=== PATIENT | female | born 1975 | race Caucasian/White ===

== ENCOUNTER 2019-04-28 10:05 | Emergency (ER) | payer OTHER, SELFPAY ==
--- NOTE | ~2019-04-28 | XR_ITS ---
EXAMINATION: XR chest 2V DATE: 04/28/2019 11:19 INDICATION: Shortness of breath and cough TECHNIQUE: Frontal and lateral views of the chest are obtained COMPARISON: 05/25/2017 FINDINGS: There are surgical changes at the left hilum with chronic volume loss in the left hemithora x, consistent with partial pneumonectomy. There is chronic elevation of the left hemidiaphragm. No ac ambler airspace opacities are identified. There is no pleural effusion or pneumothorax. The heart size i s normal. The visualized bones and soft tissues are unremarkable. IMPRESSION: 1. No acute cardiopulmonary abnormality. Reviewed, dictated and finalized at location A. RACT DESIGN AGENT
[2019-04-28 10:25] VITALS: BP 143/93; PULSE 110; RESP 20; TEMP 37.3; O2SAT 100
--- NOTE | 2019-04-28 10:30 | ECG_ITS ---
Measurements Intervals [place] Rate: 85 P: 89 WV: 150 QRS: 109 QRSD: 86 T: 82 QT: 363 QTc: 432 Interpretive Statements SINUS RHYTHM RIGHT AXIS DEVIATION RSR' IN V1 OR V2, CONSIDER RIGHT VENTRICULAR HYPERTROPHY OR RIGHT VCD BORDERLINE R WAVE PROGRESSION, ANTERIOR LEADS BORDERLINE T WAVE ABNORMALITY- ANTERIOR LEADS BASELINE ARTIFACT- V6 BORDERLINE ECG Electronically Signed On 04-28-2019 16:07:55 LINOLEUM PRINTER by Alex Foster D.O.
--- NOTE | 2019-04-28 10:38 | ED.SOB ---
HPI - SOB/Dyspnea General Chief Complaint: Shortness of Breath/Dyspnea Stated Complaint: congested sick Time Seen by Provider: 04/28/19 10:38 Source: patient Mode of arrival: ambulatory Limitations: no limitations History of Present Illness HPI Narrative: 44-year-old woman with a history of right pneumonectomy, and COPD comes to the emergency department today complaining of 5 days of fever, shortness of breath, chest heaviness, and productive cough. She states she had 1 episode of vomiting a few days ago but has had none since. She has been doing her home treatments including nebulizers to no avail. She states she had a flu vaccine last May. She denies any sick exposures or significant travel. MD elicited complaint: shortness of breath and cough Pertinent past history: COPD and asthma Onset (ago): day(s) (5) Context: recent illness Exacerbating factors: exertion Relieving factors: nothing Known history of: COPD and asthma Associated symptoms: chest pain, fever, cough, wheezing, sputum production and nausea/vomiting Related Data Home oxygen amount: 2 liters Home Medications Medication Instructions Recorded Confirmed albuterol sulfate 0.63 mg INHALATION Q4H PRN 04/28/19 04/28/19 albuterol sulfate [ProAir HFA] 2 puff INHALATION QID PRN 04/28/19 04/28/19 budesonide-formoterol [Symbicort] 2 puff INHALATION Q12H 04/28/19 04/28/19 tiotropium bromide [Spiriva with 1 cap INHALATION BID 04/28/19 04/28/19 HandiHaler] Allergies Allergy/AdvReac Type Severity Reaction Status Date / Time aspirin Allergy Unknown Verified 04/28/19 10:33 benzonatate Allergy Unknown Verified 04/28/19 10:33 [From Dannie Diaz] Penicillins Allergy Unknown Verified 04/28/19 10:33 Sulfa (Sulfonamide Allergy Unknown Verified 04/28/19 10:33 Antibiotics) Review of Systems Constitutional: Constitutional: Reports chills, Denies fatigue, Reports fever(s) and Denies weakness Eyes: Eyes: Denies change in vision and Denies photophobia ENT: Denies dysphagia, Reports nasal congestion and Denies sore throat Cardiovascular: Cardiovascular: Reports chest pain and Denies radiating jaw, neck or arm pain Respiratory: Respiratory: Reports as per HPI, Reports chest congestion, Reports cough, Reports dyspnea and Reports wheezing Gastrointestinal: Gastrointestinal: Denies abdominal pain, Denies diarrhea, Denies nausea and Reports vomiting Genitourinary: Genitourinary: Denies nocturia and Denies dysuria Musculoskeletal: Musculoskeletal: Denies back pain, Denies arthralgias and Denies joint swelling Integumentary/Breasts: Skin/Breast: Denies pruritus, Denies erythema and Denies rash Neurologic: Denies vertigo, Denies dizziness and Denies syncope Psychiatric: Psychiatric: Denies anxiety and Denies depression Endocrine: Endocrine: Denies excessive sweating and Denies polydipsia Hematologic/Lymphatic: Hematologic/Lymphatic: Denies easy bleeding and Denies easy bruising Allergic/Immunologic: Allergic/Immunologic: Denies lip swelling and Denies wheezing PMFSH Past Medical History Medical History Anxiety COPD (chronic obstructive pulmonary disease) Hypertension Surgical History Surgical History History of carpal tunnel surgery History of section S/P lobectomy of lung Ulnar nerve entrapment Social History Social History Smoking status: Former smoker Alcohol intake: former Substance use: never Living arrangements: with family Exam Const: General: alert Orientation/consciousness: patient oriented x3 Other: mild acute distress. HENMT: Head: normal to inspection Ears: external ears normal, TM's normal bilaterally and EAC's normal Mouth: Yes Normal oral and palatal mucosa present and Yes moist mucous membranes Throat: posterior oropharynx normal Eye
[2019-04-28] MEDS: IPRATROPIUM 0.5 MG/ALBUTEROL SULFATE 2.5 MG AMPUL.NEB 3 ML INHALATION (10:48)
[2019-04-28 10:49] VITALS: PULSE 86; RESP 20
[2019-04-28 10:54] VITALS: PULSE 80; RESP 20
[2019-04-28] MEDS: methylPREDNISolone SOD SUCC 125 MG VIAL IV PUSH (10:56)
[2019-04-28 11:10] LABS: Basophils Absolute Auto 0.06 K/mm3 (0.00-0.10); Basophils Percent Auto 0.6 % (0.0-1.0); Eosinophils Absolute Auto 0.17 K/mm3 (0.02-0.50); Eosinophils Percent Auto 1.8 % (1.0-6.0); Hematocrit 39.2 % (35.0-49.0); Immature Granulocyte Absolute 0.02 K/mm3 (0.00-0.00); Immature Granulocyte Percent A 0.2 % (0.0-0.0); Lymphocytes Absolute Auto 1.62 K/mm3 (1.10-4.50); Lymphocytes Percent Auto 16.9 % (18.0-42.0); Mean Corpuscular HGB Conc 33.2 g/dL (32.0-36.0); Mean Corpuscular Hemoglobin 31.1 pg (27.0-31.0); Mean Corpuscular Volume 93.8 fL (78.0-102.0); Mean Platelet Volume 8.9 fl (9.2-11.8); Monocytes Absolute Auto 0.86 K/mm3 (0.10-0.90); Monocytes Percent Auto 8.9 % (2.0-11.0); Neutrophils Absolute Auto 6.9 K/mm3 (1.7-7.2); Neutrophils Percent Auto 71.6 % (50.0-70.0); Platelet Count Result 355 K/mm3 (150-420); Red Blood Count 4.18 M/mm3 (4.20-5.40); Red Cell Distribution Width 13.9 % (11.6-14.4); White Blood Count 9.6 K/mm3 (4.8-10.8)
--- NOTE | 2019-04-28 11:10 | PC.NURSE ---
Report given to Velasquez Sarmiento
[2019-04-28 11:21] LABS: Add Urine Microscopic? NO; Appearance Urine Clear (Clear); Bilirubin Urine Negative (Negative); Blood Urine Negative (Negative); Color Urine Yellow (Yellow); Glucose Urine UA Negative (Negative); Ketones Urine Negative (Negative); Leukocyte Esterase Ur Negative LEU/UL (Negative); Nitrate Urine Negative (Negative); Protein Urine Negative (Negative); Specific Grav Ur 1.025 (1.010-1.020); Urobilinogen Urine 0.2 mg/dL (0.2-1.0); pH Urine 5.5 (5.0-8.0)
[2019-04-28 11:29] LABS: Alanine Aminotransferase 38 U/L (14-59); Albumin Level 3.9 g/dL (3.4-5.0); Alkaline Phosphatase 95 U/L (46-116); Anion Gap 14.4 mmol/L (7-16); Aspartate Amino Transferase 36 U/L (15-37); Bilirubin,Total 0.3 mg/dL (0.00-1.00); Blood Urea Nitrogen 6 mg/dL (7-18); Calcium 9.1 mg/dL (8.5-10.1); Carbon Dioxide 28 mmol/L (21-32); Chloride 102 mmol/L (98-108); Estimated CRCL calculation 60 ml/min; Estimated Glomerular Filt Rate > 60; Glucose 78 mg/dL (70-99); Osmolality Calculated 286 mOsm/kg (285-295); Potassium 4.4 mmol/L (3.5-5.1); Sodium 140 mmol/L (136-145); Total Protein 7.8 g/dL (6.4-8.2)
[2019-04-28 11:30] LABS: Troponin I < 0.02 ng/mL (0.00-0.056)
[2019-04-28 11:31] LABS: Influenza Control Valid (Valid)
[2019-04-28 11:48] LABS: Prothrombin Time 10.2 Seconds (9.64-11.0)
[2019-04-28 11:55] LABS: D Dimer 0.56 mg/L (0.19-0.50)
[2019-04-28 12:24] VITALS: BP 161/98; PULSE 67; RESP 23; O2SAT 100
== END 2019-04-28 12:25 | disposition home or self-care (01) ==
PROVIDERS: Emergency Provider Emergency Medicine
DX: J44.1 Chronic obstructive pulmonary disease with (acute) exacerbation (principal); Z87.891 Personal history of nicotine dependence
CPT/HCPCS: 36415; 71046; 80053; 81003; 84484; 85025; 85380; 85610; 85730; 87040; 87804; 93005; 94640; 96374; 99284; J2930

== ENCOUNTER 2021-11-27 14:59 | Emergency (ER) | payer OTHER, SELFPAY ==
[2021-11-27 15:21] VITALS: BP 200/133; PULSE 114; RESP 20; TEMP 36.7; O2SAT 98
[2021-11-27 16:05] VITALS: BP 189/120; PULSE 96; RESP 18; O2SAT 97
--- NOTE | 2021-11-27 16:05 | ED.DENTAL ---
HPI - Dental/Oral General Chief complaint: Dental/Oral Stated complaint: RIGHT JAW/TOOTH PAIN Time Seen by Provider: 11/27/21 15:03 Source: patient and RN notes reviewed Mode of arrival: ambulatory Limitations: no limitations History of Present Illness MD Complaint: tooth pain Onset (ago): day(s) (2) Duration: constant Severity: moderate Severity scale (1-10): 7 Relieving factors: nothing Exacerbating factors: chewing Context: history of dental caries and poor dental care Related Data Home Medications Medication Instructions Recorded Confirmed albuterol sulfate 0.63 mg/3 mL 0.63 mg inhalation Q4H PRN 04/28/19 11/27/21 solution for nebulization Shortness Of Breath albuterol sulfate 90 mcg/actuation 2 puff inhalation QID PRN 04/28/19 11/27/21 aerosol inhaler (ProAir HFA) Shortness Of Breath budesonide-formoterol HFA 160 2 puff inhalation Q12H 04/28/19 11/27/21 mcg-4.5 mcg/actuation aerosol inhaler (Symbicort) Allergies Allergy/AdvReac Type Severity Reaction Status Date / Time aspirin Allergy Unknown Verified 11/27/21 15:23 benzonatate Allergy Unknown Verified 11/27/21 15:23 [From Teswhitney Diaz] Penicillins Allergy Unknown Verified 11/27/21 15:23 Sulfa (Sulfonamide Allergy Unknown Verified 11/27/21 15:23 Antibiotics) Review of Systems Review of Systems: All systems reviewed & are unremarkable except as noted in HPI and below Constitutional: Constitutional: Reports no additional constitutional complaints Eyes: Eyes: Reports no additional eye complaints ENT: Reports system reviewed and no additional complaints, except as documented Comments: toothache. Cardiovascular: Cardiovascular: Reports no additional cardiovascular complaints Respiratory: Respiratory: Reports no additional respiratory complaints Gastrointestinal: Gastrointestinal: Reports no additional gastrointestinal complaints Genitourinary: Genitourinary: Reports no additional female genitourinary complaints Musculoskeletal: Musculoskeletal: Reports no additional musculoskeletal complaints Integumentary/Breasts: Skin/Breast: Reports system reviewed and no additional complaints, except as docu Neurologic: Reports system reviewed and no additional complaints, except as documented Psychiatric: Psychiatric: Reports no additional psychiatric complaints Endocrine: Endocrine: Reports no additional endocrine complaints Hematologic/Lymphatic: Hematologic/Lymphatic: Reports no additional hematologic/lymphatic complaints Allergic/Immunologic: Allergic/Immunologic: Reports no additional allergic/immunologic complaints PMFSH Past Medical History Medical History Anxiety COPD (chronic obstructive pulmonary disease) Hypertension Toothache Surgical History Surgical History History of carpal tunnel surgery History of section S/P lobectomy of lung Ulnar nerve entrapment Social History Social History Smoking status: Former smoker Alcohol intake: former Substance use: never Exam Const: General: healthy appearing and no acute distress Nutritional Appearance: well nourished Orientation/consciousness: patient oriented x3 Limitations: no limitations HENMT: Head: normal to inspection Ears: external ears normal, TM's normal bilaterally and EAC's normal General nose exam: Normal external nose present and Normal nares present Face and sinus: normal facial exam and sinuses nontender Mouth: Yes Normal oral and palatal mucosa present and Yes moist mucous membranes Teeth and gingiva: abnormal tooth and associated gingiva (multiple carious teeth) Throat: posterior oropharynx normal Eyes: Conjunctivae: conjunctivae normal Pupils: Equal, round and reactive pupils present EOM: EOMs intact bilaterally Neck: Neck: normal visual inspection, no lymphaden
[2021-11-27] MEDS: cloNIDine HCL 0.2 MG TABLET PO ×2 (16:15→17:07)
[2021-11-27] MEDS: cefTRIAXone 1 GM, LIDOCAINE HCL 1% LOCAL INJ 2.1 ML IM (16:15)
[2021-11-27] MEDS: IBUPROFEN 600 MG TABLET PO (16:16)
--- NOTE | 2021-11-27 17:35 | PC.NURSE ---
On 11/27/21, the student, [SUSAN CALLE ], provided care and completed [facility] documentation on this patient. I have reviewed the student's documentation and agree with the findings.
[2021-11-27 17:38] VITALS: BP 167/99; BP 200/133; PULSE 72; PULSE 99; RESP 20; TEMP 36.6; O2SAT 97
== END 2021-11-27 17:46 | disposition home or self-care (01) ==
PROVIDERS: Emergency Provider Emergency Medicine; PCP Nurse Practitioner
DX: K04.7 Periapical abscess without sinus (principal); I10 Essential (primary) hypertension
CPT/HCPCS: 96372; 99283; A9270; J0696

== ENCOUNTER 2022-08-20 12:10 | Emergency (ER) | payer OTHER, SELFPAY ==
[2022-08-20 12:10] VITALS: BP 150/104; PULSE 113; RESP 20; TEMP 37.1; O2SAT 94
--- NOTE | 2022-08-20 12:15 | ED.UPPEXIN ---
HPI - Extremity Injury (Upper) General Chief Complaint: Extremity Injury, Upper Stated Complaint: right wrist pain Time Seen by Provider: 08/20/22 12:15 Source: patient and RN notes reviewed Mode of arrival: ambulatory Limitations: no limitations History of Present Illness HPI narrative: patient states that she was at work about 3 and half weeks ago when she was cleaning off a counter when she felt a sudden tear and ripping sensation in her right wrist. She says that she has been Dorita bring her right wrist trying not to move it much but it continues to be painful and burned. Range of motion hurts trying to pick things up with her right hand causes pain. She says there is a fullness and swelling on the volar aspect of her right wrist. She says that she has had 2 surgeries on that wrist in the past 1 of them being carpal tunnel surgery. complaint: injury to: right and wrist Onset (ago): week(s) (3.5) Other injuries: none Handedness: right Place: work Severity: moderate Relieving factors: rest Exacerbating factors: movement of extremity Context: other Associated symptoms: denies other symptoms Related Data Home Medications Medication Instructions Recorded Confirmed albuterol sulfate 0.63 mg/3 mL 0.63 mg inhalation Q4H PRN 04/28/19 08/20/22 solution for nebulization Shortness Of Breath albuterol sulfate 90 mcg/actuation 2 puff inhalation QID PRN 04/28/19 08/20/22 aerosol inhaler (ProAir HFA) Shortness Of Breath budesonide-formoterol HFA 160 2 puff inhalation Q12H 04/28/19 08/20/22 mcg-4.5 mcg/actuation aerosol inhaler (Symbicort) Allergies Allergy/AdvReac Type Severity Reaction Status Date / Time aspirin Allergy Unknown Verified 08/20/22 12:15 benzonatate Allergy Unknown Verified 08/20/22 12:15 [From Dannie Diaz] Penicillins Allergy Unknown Verified 08/20/22 12:15 Sulfa (Sulfonamide Allergy Unknown Verified 08/20/22 12:15 Antibiotics) [facility] Past Medical History Medical History Anxiety COPD (chronic obstructive pulmonary disease) Hypertension Toothache Surgical History Surgical History History of carpal tunnel surgery History of section S/P lobectomy of lung Ulnar nerve entrapment Social History Social History Smoking status: Former smoker Alcohol intake: former Substance use: never Living arrangements: with family Exam Const: General: healthy appearing, no acute distress and alert Nutritional Appearance: well nourished and thin Orientation/consciousness: patient oriented x3 Limitations: no limitations Other: female nurse in room during examination. HENMT: Head: normal to inspection Ears: external ears normal Face/Nose/Sinus: Normal external nose present Face and sinus: normal facial exam Mouth: Yes moist mucous membranes Eyes: Conjunctivae: conjunctivae normal Pupils: Equal, round and reactive pupils present EOM: EOMs intact bilaterally Neck: Neck: normal visual inspection Chest: Chest palpation & inspection: normal inspection of the chest Resp: Effort & Inspection: normal respiratory effort Auscultation: clear to auscultation bilaterally Cardio: Rate: regular rate Rhythm: regular rhythm GI: GI Palp: Yes Soft to palpation and Yes Tenderness to palpation present (GI) Auscultation: normal bowel sounds Back/Spine/Pelvis: Cervical Spine: cervical ROM normal Thoracic/Lumbar Spine: thoraco-lumbar ROM normal Skin: General skin exam: normal color Rashes: no rashes Neuro: General: patient oriented x3, moves all extremities, no focal motor deficits and CN's II-XI intact bilaterally Speech: normal speech Gait exam (Neuro): Normal gait present Extrem: General: normal exam except as noted and no clubbing, cyanosis or edema Right upper extremity: wrist ( weakness of the flexor tendon of
== END 2022-08-20 12:35 | disposition home or self-care (01) ==
PROVIDERS: Emergency Provider Emergency Medicine
DX: S66.911A Strain of unspecified muscle, fascia and tendon at wrist and hand level, right hand, initial encounter (principal); X50.0XXA Overexertion from strenuous movement or load, initial encounter; M77.8 Other enthesopathies, not elsewhere classified; J44.9 Chronic obstructive pulmonary disease, unspecified; I10 Essential (primary) hypertension; F41.9 Anxiety disorder, unspecified; Z90.2 Acquired absence of lung [part of]; Z87.891 Personal history of nicotine dependence; Z79.51 Long term (current) use of inhaled steroids
CPT/HCPCS: 29125; 99283

== ENCOUNTER 2023-01-29 11:11 | Emergency (ER) | payer OTHER, SELFPAY ==
--- NOTE | ~2023-01-29 | XR_ITS ---
EXAMINATION: XR wrist RT min 3V DATE: 01/29/2023 12:57 INDICATION: Right wrist swelling. TECHNIQUE: 4 views of right wrist were obtained. COMPARISON: Right hand radiographs 09/06/2016 FINDINGS: There are changes of resection of trapezium. There is old healed fracture of diaphysis of f ifth metacarpal. Osteopenia is noted. Joint spaces are normal. IMPRESSION: 1. No etiology for the patient's symptoms. Reviewed, dictated and finalized at location E.
[2023-01-29 11:12] VITALS: BP 196/125; PULSE 128; RESP 20; TEMP 37.1; O2SAT 96
--- NOTE | 2023-01-29 11:24 | ED.EXTPRO ---
HPI - Extremity Problem General Chief complaint: Extremity Problem,Nontraumatic Stated complaint: right wrist injury Time Seen by Provider: 01/29/23 11:23 Source: patient Mode of arrival: ambulatory Limitations: no limitations History of Present Illness HPI Narrative: 47-year-old female with a history of COPD on home oxygen, status post left lobectomy when she was 7 years for pneumonia presents to the ER with -- right wrist pain. 1 cm cyst on the medial wrist which is tender. No trauma. -- Patient was noted to be hypertensive with a blood pressure of 196/125 and a heart rate of 128. The patient denies any chest pain. Chronic shortness of breath. patient states that she has white coat hypertension. MD Complaint: extremity pain Onset (ago): day(s) ( Started 1 day ago.) Location: right Severity scale (1-10): 5 Quality: aching Radiation: none Relieving factors: immobilization Exacerbating factors: range of motion Associated symptoms: shortness of breath Related Data Home Medications Medication Instructions Recorded Confirmed albuterol sulfate 0.63 mg/3 mL 0.63 mg inhalation Q4H PRN 04/28/19 08/20/22 solution for nebulization Shortness Of Breath albuterol sulfate 90 mcg/actuation 2 puff inhalation QID PRN 04/28/19 08/20/22 aerosol inhaler (ProAir HFA) Shortness Of Breath budesonide-formoterol HFA 160 2 puff inhalation Q12H 04/28/19 08/20/22 mcg-4.5 mcg/actuation aerosol inhaler (Symbicort) Allergies Allergy/AdvReac Type Severity Reaction Status Date / Time aspirin Allergy Unknown Verified 08/20/22 12:15 benzonatate Allergy Unknown Verified 08/20/22 12:15 [From Dannie Diaz] Penicillins Allergy Unknown Verified 08/20/22 12:15 Sulfa (Sulfonamide Allergy Unknown Verified 08/20/22 12:15 Antibiotics) Review of Systems Review of Systems: All systems reviewed & are unremarkable except as noted in HPI and below Constitutional: Constitutional: Reports as per HPI and Reports no additional constitutional complaints Eyes: Eyes: Reports as per HPI and Reports no additional eye complaints ENT: Reports system reviewed and no additional complaints, except as documented and Reports as per HPI Cardiovascular: Cardiovascular: Reports as per HPI and Reports no additional cardiovascular complaints Respiratory: Respiratory: Reports as per HPI, Reports no additional respiratory complaints, Reports cough and Reports dyspnea Gastrointestinal: Gastrointestinal: Reports as per HPI and Reports no additional gastrointestinal complaints Genitourinary: Genitourinary: Reports no additional female genitourinary complaints Musculoskeletal: Musculoskeletal: Reports no additional musculoskeletal complaints and Reports as per HPI Comments: Right wrist pain 1 cm erythematous tender cyst on the medial wrist Integumentary/Breasts: Skin/Breast: Reports system reviewed and no additional complaints, except as docu and Reports as per HPI Neurologic: Reports system reviewed and no additional complaints, except as documented and Reports as per HPI Psychiatric: Psychiatric: Reports no additional psychiatric complaints, Reports as per HPI and Reports anxiety Endocrine: Endocrine: Reports no additional endocrine complaints and Reports as per HPI Hematologic/Lymphatic: Hematologic/Lymphatic: Reports no additional hematologic/lymphatic complaints and Reports as per HPI Allergic/Immunologic: Allergic/Immunologic: Reports no additional allergic/immunologic complaints and Reports as per HPI PMFSH Past Medical History Medical History Anxiety COPD (chronic obstructive pulmonary disease) Hypertension Toothache Surgical History Surgical History History of carpal tunnel surgery History of section S/P lobectomy of lung Ulnar nerve entrapment Social History Social History (Reviewed 01/29/23 @ 11:33 b
--- NOTE | 2023-01-29 11:34 | ECG_ITS ---
Measurements Intervals [place] Rate: 119 P: 96 [place]: 140 QRS: 134 QRSD: 72 T: 87 QT: 293 QTc: 413 Interpretive Statements SINUS TACHYCARDIA RIGHT AXIS DEVIATION RIGHT ATRIAL ENLARGEMENT ANTEROSEPTAL INFARCT, AGE INDETERMINATE BORDERLINE T WAVE ABNORMALITY- HIGH LATERAL LEADS BASELINE ARTIFACT- I, II, III, AVR, AVL, AVF, V1 ABNORMAL ECG COMPARED TO ECG 04/28/2019 10:46:44 SINUS TACHYCARDIA NOW PRESENT ANTEROSEPTAL INFARCT NOW PRESENT Electronically Signed On 01-29-2023 13:08:47 CDT by Alex Foster D.O.
[2023-01-29 11:52] LABS: Basophils Absolute Auto 0.11 K/mm3 (0.00-0.10); Basophils Percent Auto 1.1 % (0.0-1.0); Eosinophils Absolute Auto 0.26 K/mm3 (0.02-0.50); Eosinophils Percent Auto 2.5 % (1.0-6.0); Hematocrit 45.6 % (35.0-49.0); Hemoglobin 15.9 g/dL (12.0-15.0); Immature Granulocyte Absolute 0.03 K/mm3 (0.00-0.00); Immature Granulocyte Percent A 0.3 % (0.0-0.0); Lymphocytes Absolute Auto 1.66 K/mm3 (1.10-4.50); Lymphocytes Percent Auto 16.1 % (18.0-42.0); Mean Corpuscular HGB Conc 34.9 g/dL (32.0-36.0); Mean Corpuscular Hemoglobin 32.9 pg (27.0-31.0); Mean Corpuscular Volume 94.4 fL (78.0-102.0); Mean Platelet Volume 8.6 fl (9.2-11.8); Monocytes Absolute Auto 0.66 K/mm3 (0.10-0.90); Monocytes Percent Auto 6.4 % (2.0-11.0); Neutrophils Absolute Auto 7.6 K/mm3 (1.7-7.2); Neutrophils Percent Auto 73.6 % (50.0-70.0); Platelet Count Result 375 K/mm3 (150-420); Red Blood Count 4.83 M/mm3 (4.20-5.40); Red Cell Distribution Width 12.6 % (11.6-14.4); White Blood Count 10.3 K/mm3 (4.8-10.8)
[2023-01-29 12:05] LABS: Prothrombin Time 11.3 Seconds (9.50-12.10)
[2023-01-29 12:10] LABS: Lactic Acid Reflex 1.2 mmol/L (0.4-2.0)
[2023-01-29 12:28] LABS: Estimated CRCL calculation 60 ml/min; Estimated Glomerular Filt Rate > 60
[2023-01-29 12:39] LABS: Troponin I 5.4 ng/L (0.00-60.4)
[2023-01-29 12:44] LABS: Appearance Urine Clear (Clear); Bilirubin Urine Negative (Negative); Blood Urine Negative (Negative); Color Urine Light Yellow (Yellow); Glucose Urine UA Negative (Negative); Ketones Urine Trace (Negative); Leukocyte Esterase Ur Negative LEU/UL (Negative); Nitrate Urine Negative (Negative); Protein Urine Trace (Negative); Urobilinogen Urine 0.2 mg/dL (0.2-1.0)
[2023-01-29 12:44] LABS: Alanine Aminotransferase 25 U/L (14-59); Albumin Level 4.1 g/dL (3.4-5.0); Alkaline Phosphatase 108 U/L (46-116); Anion Gap 10 mmol/L (8-16); Aspartate Amino Transferase 23 U/L (15-37); Bilirubin,Total 0.6 mg/dL (0.00-1.00); Blood Urea Nitrogen 7 mg/dL (7-18); Calcium 10.1 mg/dL (8.5-10.1); Carbon Dioxide 28 mmol/L (21-32); Chloride 95 mmol/L (98-108); Glucose 92 mg/dL (70-99); NT Pro B Type Natriuretic Pept 220 pg/mL (0-125); Osmolality Calculated 274 mOsm/kg (285-295); Potassium 4.8 mmol/L (3.5-5.1); Sodium 133 mmol/L (136-145); Total Protein 7.9 g/dL (6.4-8.2)
[2023-01-29 12:45] LABS: Thyroid Stimulating Hormone < 0.01 uIU/mL (0.36-3.74)
--- NOTE | 2023-01-29 12:45 | PC.NURSE ---
On 01/29/23, the student, [mya peguero ], provided care and completed [facility] documentation on this patient. I have reviewed the student's documentation and agree with the findings.
[2023-01-29 12:48] LABS: Add Urine Microscopic? YES; Bacteria Urine Trace /hpf; RBC Urine None seen /hpf (0-2); Squamous Epithelial Cell Urine Moderate /hpf (Few); WBC Urine None seen /hpf (0-3)
[2023-01-29 13:32] LABS: Free T3 3.19 pg/mL (2.18-3.98); Free T4 Free Thyroxine 0.85 ng/dL (0.76-1.46)
[2023-01-29 14:30] VITALS: BP 165/115; PULSE 139; RESP 18; TEMP 37.2; O2SAT 94
== END 2023-01-29 14:43 | disposition home or self-care (01) ==
PROVIDERS: Emergency Provider Internal Medicine Critical Care Medicine
DX: M67.431 Ganglion, right wrist (principal); M25.531 Pain in right wrist; I10 Essential (primary) hypertension; J44.9 Chronic obstructive pulmonary disease, unspecified; Z87.891 Personal history of nicotine dependence; Z99.81 Dependence on supplemental oxygen
CPT/HCPCS: 36415; 73110; 80053; 81001; 83605; 83880; 84439; 84443; 84481; 84484; 85025; 85610; 93005; 99284

== ENCOUNTER 2024-07-21 10:01 | Emergency (ER) | payer OTHER, SELFPAY ==
[2024-07-21 10:01] VITALS: BP 141/88; PULSE 72; RESP 18; TEMP 36.4; O2SAT 97
--- NOTE | 2024-07-21 10:04 | ED.EAR ---
HPI - Ear Problem General Chief complaint: Ear Stated complaint: EAR PAIN Time Seen by Provider: 07/21/24 10:04 Source: family Mode of arrival: ambulatory Limitations: no limitations History of Present Illness HPI Narrative: 49-year-old female a history of COPD, hypertension, status post left lower lobectomy presents to the ED multiple months history of -- sinus congestion with clear/ purulent nasal discharge -- right ear pain. the patient has had intermittent bilateral ear pain. no ear discharge . no fever or chills. Hearing is Decreased. MD Complaint: ear pain Location: right ear Duration: constant Severity: moderate Relieving factors: nothing Exacerbating factors: nothing Discharge from ear: Reports no Associated symptoms ear: decreased hearing and external ear tenderness Treatment prior to arrival: none Related Data Home Medications ?Medication ?Instructions ?Recorded ?Confirmed ?Last Taken ?Type albuterol sulfate 0.63 mg/3 mL 0.63 mg inhalation Q4H PRN 04/28/19 08/20/22 Unknown History solution for nebulization Shortness Of Breath albuterol sulfate 90 mcg/actuation 2 puff inhalation QID PRN 04/28/19 08/20/22 Unknown History aerosol inhaler (ProAir HFA) Shortness Of Breath budesonide-formoterol HFA 160 2 puff inhalation Q12H 04/28/19 08/20/22 Unknown History mcg-4.5 mcg/actuation aerosol inhaler (Symbicort) Allergies Allergy/AdvReac Type Severity Reaction Status Date / Time aspirin Allergy Unknown Verified 08/20/22 12:15 benzonatate (From Tessalon Allergy Unknown Verified 08/20/22 12:15 Perles) Penicillins Allergy Unknown Verified 08/20/22 12:15 Sulfa (Sulfonamide Allergy Unknown Verified 08/20/22 12:15 Antibiotics) Review of Systems Review of Systems: All systems reviewed & are unremarkable except as noted in HPI and below Constitutional: Constitutional: Reports as per HPI and Reports no additional constitutional complaints Eyes: Eyes: Reports as per HPI and Reports no additional eye complaints ENT: Reports system reviewed and no additional complaints, except as documented and Reports as per HPI Cardiovascular: Cardiovascular: Reports as per HPI and Reports no additional cardiovascular complaints Respiratory: Respiratory: Reports as per HPI and Reports no additional respiratory complaints Gastrointestinal: Gastrointestinal: Reports as per HPI and Reports no additional gastrointestinal complaints Genitourinary: Genitourinary: Reports no additional female genitourinary complaints and Reports as per HPI Musculoskeletal: Musculoskeletal: Reports no additional musculoskeletal complaints and Reports as per HPI Integumentary/Breasts: Skin/Breast: Reports system reviewed and no additional complaints, except as docu and Reports as per HPI Neurologic: Reports system reviewed and no additional complaints, except as documented and Reports as per HPI Psychiatric: Psychiatric: Reports no additional psychiatric complaints and Reports as per HPI Endocrine: Endocrine: Reports no additional endocrine complaints and Reports as per HPI Hematologic/Lymphatic: Hematologic/Lymphatic: Reports no additional hematologic/lymphatic complaints and Reports as per HPI Allergic/Immunologic: Allergic/Immunologic: Reports no additional allergic/immunologic complaints and Reports as per HPI [facility] Past Medical History Medical History Toothache Anxiety COPD (chronic obstructive pulmonary disease) Hypertension Surgical History Surgical History Ulnar nerve entrapment History of carpal tunnel surgery History of section S/P lobectomy of lung Social History Social History Smoking status: Former smoker Alcohol intake: former Substance use: never Living arrangements: with family Exam Narrative: Afebrile Const: General: no acute distress Orientation/consciousness: patient oriented x3 HENMT: Head: normal to inspection Ears: external ears normal ( tender on palpation of the right tragus and the right ear canal. ) and TM's normal bilaterally ( unable to visualize bilateral tympanic membranes secondary to wax) Face/Nose/Sinus: Normal external nose present Face and sinus: normal facial exam Mouth: Yes Normal oral and palatal mucosa present Throat: posterior oropharynx normal Eyes: Conjunctivae: conjunctivae normal Pupils: Equal, round and reactive pupils present EOM: EOMs intact bilaterally Neck: Neck: normal visual inspection, no lymphadenopathy and no meningeal signs Chest: Chest palpation & inspection: normal inspection of the chest Resp: Effort & Inspection: normal respiratory effort Auscultation: diminished lung sounds Cardio: Rate: regular rate Rhythm: regular rhythm GI: Auscultation: normal bowel sounds Other: no tenderness/rigidity / rebound. : General: Yes no CVA tenderness Back/Spine/Pelvis: Back: no CVA tenderness Skin: General skin exam: normal color Rashes: no rashes Wounds: no wounds Neuro: General: patient oriented x3, moves all extremities, no meningeal signs, no focal motor deficits and CN's II-XI intact bilaterally Cranial nerves: Yes Nystagmus not present Speech: normal speech Extrem: General: normal to inspection and no clubbing, cyanosis or edema Psych: Mental Status: mental status grossly normal Affect: normal affect Attitude: cooperative Course Course Emergency Course: Sinusitis otitis externa Vital Signs Vital signs: Vital Signs Temperature 36.4 C 07/21/24 10:01 Pulse Rate 72 07/21/24 10:01 Respiratory Rate 18 07/21/24 10:01 Blood Pressure 141/88 H 07/21/24 10:01 Pulse Oximetry 97 07/21/24 10:01 Oxygen Delivery Room Air 07/21/24 10:01 Temperature 36.4 C 07/21/24 10:01 Pulse Rate 72 07/21/24 10:01 Respiratory Rate 18 07/21/24 10:01 Blood Pressure 141/88 H 07/21/24 10:01 Pulse Oximetry 97 07/21/24 10:01 Oxygen Delivery Room Air 07/21/24 10:01 Medical Decision Making [facility] Narrative Medical decision making narrative: sinusitis otitis externa Differential Diagnosis Differential Diagnosis: otitis media Medical Records Medical records reviewed: Yes I reviewed the external patient's medical records. Vital Signs Vital Signs: Vital Signs Temperature 36.4 C 07/21/24 10:01 Pulse Rate 72 07/21/24 10:01 Respiratory Rate 18 07/21/24 10:01 Blood Pressure 141/88 H 07/21/24 10:01 Pulse Oximetry 97 07/21/24 10:01 Oxygen Delivery Room Air 07/21/24 10:01 Temperature 36.4 C 07/21/24 10:01 Pulse Rate 72 07/21/24 10:01 Respiratory Rate 18 07/21/24 10:01 Blood Pressure 141/88 H 07/21/24 10:01 Pulse Oximetry 97 07/21/24 10:01 Oxygen Delivery Room Air 07/21/24 10:01 Discharge Plan Discharge Clinical Impression: Otitis externa, Sinusitis Patient Disposition: Home Condition: Stable Instructions: Antibiotic Form, Sinusitis (ED), Swimmer's Ear (ED) Patient Language: St Helen[place] Prescriptions: New azithromycin [Zithromax TRI-JUN] 500 mg tablet 500 mg PO DAILY 3 Days Qty: 3 0RF Cortisporin-TC 3.3-3-10-0.5 mg/mL drops,suspension 1 applic RIGHT EAR Q4H 3 Days Qty: 10 0RF Rx Instructions: apply to (cotton) wick; replace wick every 24 hours No Action clindamycin HCl 300 mg capsule 300 mg PO Q6H Qty: 40 0RF ibuprofen 600 mg tablet 600 mg PO TID Qty: 20 0RF omeprazole magnesium [Prilosec OTC] 20 mg tablet,delayed release (DR/EC) 20 mg PO BID Qty: 20 0RF albuterol sulfate 0.63 mg/3 mL Solution For Nebulization 0.63 mg INHALATION Q4H PRN (Reason: Shortness Of Breath) albuterol sulfate [ProAir HFA] 90 mcg/actuation Hfa Aerosol Inhaler 2 puff INHALATION QID PRN (Reason: Shortness Of Breath) budesonide-formoterol [Symbicort] 160-4.5 mcg/actuation Hfa Aerosol Inhaler 2 puff INHALATION Q12H hydrocodone-acetaminophen 5-325 mg tablet 1 tablet PO Q8H PRN (Reason: pain) Qty: 10 0RF Follow-up/Referrals: Nicho,Honey Kapoor MD [Non-Staff] - Time of Disposition: 10:25
--- OUTSIDE RECORDS SUMMARY | 2024-07-21 11:22 | XMS_ITS | Clinical Summary ---
Author Organization [facility] Address [facility] [place] [address] Care Team Providers Care Yard Brakeman Name Role Phone Prudence Alfred [facility] Primary Care Provider + [phone] Rajesh Gutiérrez MD Unavailable Unavailabl Moises Russo MD Unavailable [phone] Emmett Perez MD Unavailable [phone] Allergies Active Allergy Reactions Criticality Noted Date Comments Aspirin Other (see comment) 12/04/2015 Bleeding Penicillins Itching 12/04/2015 Sertraline Unknown 06/30/2015 Sulfa Antibiotics Shortness of Breath High 6 Benzonatate Anaphylaxis High 05/14/2018 Medications tiotropium (SPIRIVA) 18 MCG inhalation capsule Spiriva with HandiHaler (tiotropium bromide) capsule, w/inhalation device 18 mcg; use as directed; 0; -May-2015; Active 6 Active naproxen 500 MG tablet Take 1 tablet (500 mg total) by mouth 2 (two) times daily as needed. 7 Active albuterol sulfate HFA 108 (90 Base) MCG/ACT inhaler Inhale 2 puffs into the lungs 4 (four) times daily as needed. Active OXYGEN GASEOUS & LIQUID DME SUPPLIESIndicat ions:Chronic obstructive pulmonary disease, unspecified (CMS/HCC HHS/HCC) Inhale 1 Device into the lungs as needed. [employer] - please contact patient regarding a change in home company. Riky Akin no longer takes her insurance. She currently uses 2 Lpm with sleep and activity. Patient will need concentrator and portable tanks. 1 Device 9 Active albuterol (5 MG/ML) 0.5% nebulizer solution Inhale 0.5 mLs into the lungs every 8 (eight) hours. Active budesonide-form oterol 80-4.5 MCG/ACT inhaler Inhale 2 puffs into the lungs 2 (two) times daily. Active dilTIAZem CD 180 MG 24 hr capsule Take 1 capsule (180 mg total) by mouth daily. 90 capsule 3 1 Active Additional Information Patient not taking.Reported on 04/07/2023 HYDROcodone-ezio taminophen (NORCO) 5-325 MG tabletIndicatio ns:Acute Pain < 7 Day Supply Take 1-2 tablets by mouth every 6 (six) hours as needed. Indications: Acute Pain < 7 Day Supply 20 tablet 3 Active buPROPion SR (WELLBUTRIN SR) 150 MG 12 hr tablet Take 1 tablet (150 mg total) by mouth 2 (two) times daily. 4 Active losartan (COZAAR) 25 MG tablet Take 1 tablet (25 mg total) by mouth daily. 4 Active Active Problems Problem Noted Date Diagnosed Date Carpal tunnel syndrome of right wrist 11/10/2020 Cubital tunnel syndrome on right 11/10/2020 Primary osteoarthritis of fi rst carpometacarpal joint of left hand 08/18/2020 Primary osteoarthritis of fi rst carpometacarpal joint of right hand 08/18/2020 Numbness and tingling of both upper extremities 08/18/2020 COPD, very severe ([facility]/HCC HHS/[facility]) 11/27/2018 S/P pneumonectomy 11/27/2018 Requires supplemental oxygen 11/27/2018 Smoker 11/27/2018 Palpitations 12/04/2015 Former smoker 12/04/2015 Hypertension Immunizations Immunization Administration Dates Next Due Fluzone 6 Months+ Quad (0.5 mL Prefilled Syringe ) 05/14/2018 Family History Medical History Relation Comments Hypertension Father Stroke Maternal Grandmother Diabetes Other Heart Disease Other mental illness Other Lung Disease Paternal Grandmother TB Paternal Grandmother Relation Status Comments Brother 1 Alive Brother 2 Alive Father Alive Maternal Grandfather Maternal Grandmother Mother Alive Other Paternal Grandfather Paternal Grandmother Sister 1 Alive Sister 2 Alive Social History Tobacco Use Types Packs/Day Years Used Date Smoking Tobacco: Some Days Cigarettes 0.3 24 Smokeless Tobacco: Never Tobacco Cessation:Ready to Q uit: Not Asked; Counseling Given: Not Answered Comments:Started smoking at age 30. Smoked 1.5 - 2 packs per day. Will still have a cigarette from time to time. Alcohol Use Standard Drinks/Week Comments Yes 0 (1 standard drink = 0.6 oz pur e alcohol) 3 packs of beer a week AUDIT-C Answer Date Recorded Frequency of Alcohol Consumption 2-4 times a fri11/27/2018 Average Number of Drinks Not on file 019 Frequency of Binge Drinking Not on file 10/31 Comments No Sex and Gender Information Value Date Recorded Sex Assigned at Not on file Legal Sex Female 8:03 PM CDT Gender Identity Not on file Sexual Orientation Not on file Occupation Industry Job Start Date Job End Date disability Not on file Not on file Not on file Last Filed Vital Signs Vital Sign Reading Time Taken Comments Blood Pressure 120/84 04/07/2023 10:43 AM REHABILITATION SERVICES COUNSELOR Pulse 66 04/07/2023 1:17 PM REHABILITATION SERVICES COUNSELOR Temperature 37.2 C (99 F) 07/17/2022 11:04 AM CDT Respiratory Rate 16 04/07/2023 10:43 AM REHABILITATION SERVICES COUNSELOR Oxygen Saturation 92% 04/07/2023 10:43 AM REHABILITATION SERVICES COUNSELOR Inhaled Oxygen Concentration - - Weight 39.5 kg (87 lb) 04/07/2023 10:43 AM REHABILITATION SERVICES COUNSELOR Height 152.4 cm (5') 04/07/2023 10:43 AM REHABILITATION SERVICES COUNSELOR Body Mass Index 16.99 04/07/2023 10:43 AM REHABILITATION SERVICES COUNSELOR Plan of Treatment Health Maintenance Due Date Last Done Comments Cervical Cancer Screening Pa p Smear (Age 30 to 64) Every 3 Years 1973 Colorectal Cancer Screening Colonoscopy (10 Years) 1973 Annual Physical 1976 Hepatitis C 1991 DTaP, Tdap and Td Vaccines ( 1 - Tdap) 1992 Hepatitis B Vaccines (1 of 3 - 19+ 3-dose series) 1992 Pneumococcal Vaccine: 50+ Ye ars (1 of 2 - PCV) 1992 Cervical Cancer Screening Pa p with HPV Testing (Age 30 to 64) Every 5 Years 2003 Cervical Cancer Screening with HPV 2003 Mammogram Screening 2013 Zoster Vaccines (1 of 2) 2023 COVID-19 Vaccine ( - 2023-2 5 season) 2023 Meningococcal B Vaccine Aged Out No l onger eligible based on patient's age to complete this topic Meningococcal Vaccine Aged Out No luke carlos eligible based on patient's age to complete this topic RSV Immunizations Under 20 Months Aged Out No longer eligible based on patient's age to complete this topic Insurance [facility] Care Teams Yard Brakeman Relationship Specialty Start Date End Date Prudence Alfred [employer]- [address] [place] [address] PCP - General NURSE PRACTITIONER 08/17/20 Rajesh Gutiérrez MD [address] [place] [address] Consulting Physician CARDIOVASCULAR DISEASE 12/20/20 Moises Christianson MD [address] [place] [address] RECONSTRUCTIVE SURGERY 12/28/20 Emmett Perez MD [facility] [place] [id number] Consulting Physician PULMONARY DISEASE 04/07/23
--- OUTSIDE RECORDS SUMMARY | 2024-07-21 11:22 | XMS_ITS | Encounter Summary ---
Author Organization [facility] Address [address] [place] [address] Care Team Providers Care Design Engineer Marine Equipment Name Role Phone Prudence Alfred [facility] Primary Care Provider [phone] Rajesh Gutiérrez MD Unavailable Unavailabl Moises Russo MD Unavailable [phone] Emmett Perez MD Unavailable [phone] Encounter Details Date Type Department Care Team (Late st Contact Info) Description 12/22/2020 Abstract [facility] [address] [place] [id number] Rajesh Gutiérrez MD Social History Tobacco Use Types Packs/Day Years Used Date Smoking Tobacco: Some Days Cigarettes 0.3 24 Smokeless Tobacco: Never Comments:Started smoking at age 30. Smoked 1.5 [...] Binge Drinking Not on file 10/31 Comments Unknown Sex and Gender Information Value Date Recorded Sex Assigned at Not on file Legal Sex Female 8:03 PM CDT Gender Identity Not on file Sexual Orientation Not on file Occupation Industry Job Start Date Job End Date disability Not on file Not on file Not on file documented as of this encounter Plan of Treatment Not on file documented as of this encounter Visit Diagnoses Not on filedocumented in this encounter Care Teams Design Engineer Marine Equipment Relationship Specialty Start Date End Date Tima Prudence [facility] [address] [place] [address] PCP - General NURSE PRACTITIONER 08/17/20 Rajesh Gutiérrez MD [address] [place] [address] Consulting Physician CARDIOVASCULAR DISEASE 12/20/20 Moises Christianson MD [address] [place] [address] RECONSTRUCTIVE SURGERY 12/28/20 Emmett Perez MD [facility] [place] [id number] Consulting Physician PULMONARY DISEASE 04/07/23 documented as of this encounter
--- OUTSIDE RECORDS SUMMARY | 2024-07-21 11:22 | XMS_ITS | Data Portability ---
Author Organization [facility], [address] [place] [address] Neurology ([place]) Address [address] [place] [address] Care Team Providers Care Skate Hop Name Role Phone BRITTNY FALCON Primary Care Provider [phone] EMMETT LLOYD Acting Section Chief Assessment Encounter Date Assessment Date Assessment LastModified by Organization Details LastModified Time 04/27/2024 04/27/2024 RESULTS/DATA: Spirometry shows very severe obstruction. Room air saturation 95%. She walked 429 meters. It was 93% at the end. IMPRESSION AND PLAN: The patient was counseled for 3 minutes on smoking cessation. She was offered varenicline. She was offered a nicotine replacement product. We discussed doing combination therapy. She will consider. Continue Symbicort 160-4.5 two b.i.d. Continue Spiriva Respimat 2.5 mcg 2 q. a.m. Continue short-acting bronchodilators q. 6 hours p.r.n. Obtain chest x-ray. If the x-ray comes back unremarkable, we will enter her into the lung cancer screening program. jose [email or web address] Not available 04/27/2024 10:55:29 05/18/2024 05/18/2024 I anticipate a repeat CT scan of the chest without contrast in 3 months. Same maintenance/rescue medicine for obstructive lung disease. She was encouraged to not smoke. See me after above. jose [email or web address] Not available 05/18/2024 16:54:53 Plan of Treatment Reminders Order Date Submit Date Provider Last Modified By Organization Details Last Modified Time Details Appointments Imaging 5.PRO 2024 01:30P M Radiology Not available Not available Not available Becky flores Patient 15.EST 2024 02:15P Bethanie Lloyd Not available Not available Not available Lab None recorded . Referral None recorded . Procedures None recorded . Surgeries None recorded . Imaging CT, chest, w/o contrast 2024 025 [email or web address] [facility], [address] [place] [address], [id number], 05/18/2024 19:13:22 XR, chest, 2 view 2024 025 [email or web address] [facility], [address] [place] [address], [id number], 04/27/2024 11:04:37 Medication Orders None recorded . Patient TargetsNo targets recorded. Patient Instructions Encounter Date Encounter Id Patient Instructions Last Modified By Organization Details Last Modified Time 05/18/2024 [id number] I spent time goi ng over the results of the CAT scan. I explained that there is an indeterminate 8-mm nodule at the left apex. This could be benign. She is aware she is at risk for malignancy with her history of smoking. I explained the rationale for observation. I shared with her the radiologist s recommendation to do another scan in 3 months. She agreed to this. [email or web address] Not available 05/18/2024 16:54:42 Reason for Referral None Reported. Results Created Date Observation Date Name Description Value Unit Range Abnormal Flag Note LastModifiedBy Organization Detail LastModifiedTime 04/27/19 25 04/27/2024 XR, chest , 2 view [facility] [address] [place] [address] Teleph svv Name: Savana Estrada [id number] Exam Date: 2024 Age: 49 Physic keiko: MD Chris, Tim feliz : 1974 Examin ation: XR CHEST 2 VIEWS EXAM: XR CHEST 2 VIEWS HISTOR Y: Osvaldo kim is in the lung cancer study, issues with copd. No other chest compla ints at this time. FINDIN GS: PA and latera l views. Compar franny 023. Postsu rgical change s in the left lung with result ant volume loss and shifti ng of the medias tinal struct ures to the left. Left basila r opacit y simila r to prior. There is new opacit y within the left upper lobe. Right lung is clear and hypere xpande d simila r to prior. IMPRES MAGGIE: New left upper lobe opacit y. Electr onical ly signed in Hernandez cribe by: NICOLE MURRAY MD on:04/01 10:02 AM cc: Page PAGE 1 of [facility] 1 Sc Only - Sc Radiology [address] [place] [address], [id number], 04/28/2024 13:34:27 04/27/19 25 04/27/2024 six minut e walk test* No observ ation record ed. BARCODE Not Available 2024 18:28:05 04/28/19 25 04/27/2024 PFT No observ ation record ed. INTERFACE [facility] Only - [facility] Pulmonology [facility], [address], 04/28/2024 09:55:47 05/18/19 25 05/18/2024 CT, chest , w/ contr ast [facility] [address] [address] Teleph one [phone] Name: Savana Estrada [id number] Exam Date: 2024 Age: 49 Physic keiko: MD Chris, Tim ah : 1974 Examin ation: CT CHEST W CT OF THE CHEST HISTOR Y: New left upper lobe opacit y. Histor y of recurr ent pneumo germán and previo us left pneumo nectom y TECHNI QUE: CT of the chest was perfor med with IV contra st admini strati on. 80 mL of Isovue -370 was inject ed throug h the right antecu bital fossa withou t eviden ce of advers e reacti on. Automa caro exposu re contro l was used as a dose optimi zation techni que for the examin ation. COMPAR FRANNY: Chest radiog raphs 025 FINDIN GS: No axilla ry or suprac lavicu lar lympha denopa thy. Mildly promin ent 0.8 cm short axis precar inal lymph node on series 302 image 73. Along the systems architect omedia l upper left hemith orax on series 302 image 45 there is a 0.7 cm short axis soft tissue nodule which is likely a mildly enlarg ed lymph node as well. The heart reside s in the systems architect ior left hemith orax at the base. No thorac ic aortic aneury sm or dissec tion. No pulmon dorinda emboli sm is seen. The left lung is absent . There are change s from previo us left pneumo nectom y at the left hilum. The distal left pulmon dorinda artery trunk is blunte d around axial image 85, withou t any operat frieda change s in this region , sugges ting that some of the left lung volume loss could also be due to congen ital left lung hypopl teresa. There is irregu lar somewh at nodula r pleura l thicke vania at the systems architect ior left apex, measur ing up to 8 mm on series 302 image 52. Mild adjace nt ground glass infilt rates at the left apex as seen on image 63, likely infect ious or inflam matory . Less pronou nced pleura l thicke vania at the latera l right apex, with a subple ural 3 mm nodule on series 302 image 55. Mild pulmon dorinda emphys dorota. No pleura l effusi on. Unrema rkable upper abdome n images . No fractu re or bone lesion . There is a pectus excava deisy chest wall deform ity anteri awa on series 302 image 152. IMPRES MAGGIE: 1. The left lung is absent . There are pneumo nectom y change s at the left hilum, indica ting that a portio n of the left lung absenc e is due to previo us pneumo nectom y, but also suspec t underl markos congen ital left lung hypopl teresa. 2. Irregu lar pleura l thicke vania is presen t at the left apex, with an 8 mm subple ural nodula r opacit y systems architect iorly which may repres ent focal scarri ng, but should be follow ed with CT in 3 months . 3. Mildly enlarg ed lymph nodes in the medias tinum and systems architect ior upper left chest, nonspe cific. Attent ion on follow -up. 4. Mild ground glass infilt rates within the left apex, likely infect ious or inflam matory . 5. Mild pulmon dorinda emphys dorota. 6. Pectus excava deisy. 7. Compar franny to any previo us CT chest imagin g would be helpfu l, if availa ble elsewh ere. Electr onical ly signed in Hernandez cribe by: TESSIE OSUNA on:05/01 3:24 PM cc: Page PAGE 1 of [facility] 1 [email or web address] [facility] Radiology [address] [place] [address], [address], 05/18/2024 16:29:42 Result Notes None recorded. Problems Name Problem SNOMED Code Status Onset Date Resolution Date Notes Provider Name and Address Organization Details Recorded Time Severe chronic obstructive pulmonary disease 274654173 Active 2023 Richelle Boone [facility] 4 14:27:15 Chronic obstructive pulmonary disease 81842980 Active 2024 Emmett Lloyd MD [address] [place] [address], [phone], [facility] 5 10:04:46 Plain X-ray of chest abnormal Active 2024 [facility] 5 13:32:46 Nodule of lung 868993219 Active 2024 Emmett Lloyd MD [address] [place] [address], [phone], [facility] 5 16:39:33 Cigarette smoker 00185300 Active 2024 Emmett Lloyd MD [address] [place] [address], [phone], [facility] 5 16:39:49 Problem Notes None recorded. Procedures Surgical History None recorded. Imaging Results Imaging Date Name Status LastModified by Organesther ation Details LastModified Time 04/27/2024 XR, chest, 2 view completed [email or web address] [facility] Radiology [address] [place] [address], [address], 04/28/2024 13:34:27 04/27/2024 six minute walk test* completed BARCODE Information not available 04/27/2024 18:28:05 04/27/2024 PFT completed INTERFACE [facility] Pulmonology [address] [place], [address], 04/28/2024 09:55:47 05/18/2024 CT, chest, w/ contrast completed [email or web address] [facility] Rad[facility] [address] [place] [address], [address], 05/18/2024 16:29:42 Procedure Notes None recorded. Medical Equipment None Reported. 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 2024 active Not Available Not Available Not Avai lable clindamyc in HCl 300 mg capsule active Not Available Not Available Not Available prednison e 20 mg tablet 04/27 completed not taking, per patient Not Available Not Available Not Available acetamino phen 300 mg-codein e 15 mg tablet active Not Available Not Available Not Available losartan 25 mg tablet active Not Available Not Available Not Available metoprolo l succinate ER 25 mg tablet,ex tended release 24 hr active Not Available Not Available Not Available levofloxa rachid 750 mg tablet active Not Available Not Available No t Available albuterol sulfate HFA 90 mcg/actua tion aerosol inhaler Inhale 2 puffs every 6 hours by inhalati on route as needed for 30 days. 2024 active Not Available Not Available Not Avai lable losartan 100 mg tablet active Not Available Not Available Not Available escitalop caryn 10 mg tablet active Not Available Not Available Not Available escitalop caryn 20 mg tablet active Not Available Not Available Not Available cyclobenz aprine 5 mg tablet active Not Available Not Available No t Available bupropion HCl XL 150 mg 24 hr tablet, extended release active Not Available Not Available Not Available escitalop caryn 5 mg tablet active Not Available Not Available Not Available tiotropiu m bromide 18 mcg capsule with inhalatio n device 04/20 completed Not Available Not Available Not Available Symbicort 160 mcg-4.5 mcg/actua tion HFA aerosol inhaler Inhale 2 puffs twice a day by inhalati on route. 2024 active Not Available Not Available Not Avai lable clonidine HCl ER 0.1 mg tablet,ex tended release,1 2 hr active Not Available Not Available Not Available Spiriva Respimat 2.5 mcg/actua tion solution for inhalatio n 2024 active Not Available Not Available Not Avai lable Vitals Date Recorded Body height Body mass index (BMI) Body weight Heart rate Oxygen saturation Oxygen saturation in Arterial blood by Pulse oximetry Systolic blood pressure Diastolic blood pressure Provider Name and Address Organization Details Last Updated DateTime 5 157.48 cm 16.3 kg/m2 48190.7 2 g 92 /min 91 % 91 % 132 mm[Hg] 88 mm[Hg] Khushi Bonilla [facility] 5 09:47:35 Date Recorded Body height Body mass index (BMI) Body weight Heart rate Oxygen saturation Oxygen saturation in Arterial blood by Pulse oximetry Systolic blood pressure Diastolic blood pressure Provider Name and Address Organization Details Last Updated DateTime 5 157.48 cm 17.4 kg/m2 70624.9 2 g 85 /min 91 % 91 % 106 mm[Hg] 70 mm[Hg] Hilary Holguin [facility] 5 16:26:43 Social History Question Answer Notes LastModified by Organizat ion Details LastModified Time Tobacco Smoking Status Current Every Day Smoker Khushi Bonilla [facility] 04/27/2024 09:48:01 How Many Packs Per Day (PPD)? 2 Information not available 04/27/2024 How Long Have You Smoked? 21 Information not available 04/27/2024 Sex: Unknown Functional Status None recorded. Mental Status None recorded. Family History Nothing Reported. Medical History No medical history recorded. Gynecological HistoryNo gynecological history recorded. Obstetrics History GPAL:G 0 P 0 0 0 0 Immunizations Vaccine Type Date Status Note Provider Nam e and Address Organization Details Recorded Time Influenza, split virus, quadrivalent, preservative 9 completed Hilary Skillett [facility] 05/18/2024 16:26:53 COVID-19, mRNA, LNP-S, PF, 30 mcg/0.3 mL dose 1 completed Hilary Skillett [facility] 05/18/2024 16:26:53 COVID-19, mRNA, LNP-S, PF, 30 mcg/0.3 mL dose 1 completed Hilary Skillett [facility] 05/18/2024 16:26:53 Pneumococcal conjugate PCV20, polysaccharide [id number] conjugate, adjuvant, PF 4 completed Hilary Skillett [facility] 05/18/2024 16:26:53 COVID-19, mRNA, LNP-S, PF, mally-sucrose, 30 mcg/0.3 mL 4 completed Hilary Skillett [facility] 05/18/2024 16:26:53 Influenza, split virus, trivalent, PF 4 completed Hilary Skillett [facility] 05/18/2024 16:26:53 Influenza, split virus, quadrivalent, PF 9 completed Hilary Skillett [facility] 05/18/2024 16:26:53 Influenza, split virus, quadrivalent, PF 7 completed Hilary Holguin [facility] 05/18/2024 16:26:53 Past Encounters Encounter ID Performer Location Encounter Start Date Encounter Closed Date Diagnosis/Indication Diagnosis SNOMED-CT Code Diagnosis ICD10 Code Diagnosis Note [id number] Cris Lisa [address] [place] [id number] 04/27/2024 09:05:51 04/27/2024 17:19:22 Severe chronic obstructive pulmonary disease 501626006 J44.9 [id number] Emmett Lloyd MD [address] Pul ([place]) [address] [facility],[address] [place] [address] 04/27/2024 09:06:03 04/27/2024 16:59:17 Chronic obstructive pulmonary disease 53859493 J44.9 History of pneumonectomy 353419561 Z90.2 left pneumonect christal ~ 83. Reason unknown. Substance abuse counseling 451005247 Z71.6 Screening for malignant neoplasm of lung 570161531 Z12.2 [id number] Emmett Lloyd MD [address] [place]) [address] [facility],[address] [place] [phone] 05/18/2024 16:08:31 05/18/2024 17:43:23 Nodule of lung 950988983 R91.1 History of pneumonectomy 097536780 Z90.2 left pneumonect christal ~ '83. Reason unknown. Cigarette smoker 0932887 7 F17.210 Chronic ob structive pulmonary disease 22557629 J44.9 Health Concerns Section Related Observation LastModified by Organization Detai ls LastModified Time None Recorded Concern Status LastModified by Organization Details LastModified Time None Recorded Advance Directives Directive None Recorded Payers Encounter Date Sequence Insurance Name Policy Number Policy Kellogg Covered Member ID Kellogg Member ID Guarantor Name 04/27/2024 1 [employer] [place] ON [place] AFTER 2020 (MEDICAID REPLACEMENT - HMO) Teresa Estrada [id number] Teresa Castro On 04/27/2024 2 [place] Teresa Estrada [id number] Teresa Castro Ondo 04/27/2024 1 [employer] [place] AFTER 2020 (MEDICAID REPLACEMENT - HMO) Teresa Estrada [id number] Teresa Castro On 04/27/2024 2 [place] Teresa Estrada [id number] Teresa Castro On 05/18/2024 1 [employer] [place] - [place] ON [place] AFTER 2020 (MEDICAID REPLACEMENT - HMO) Teresa Estrada [id number] Teresa Estrada Notes Date Note Type Note Provider Name and Address Organization Details Recorded Time 04/27/2024 text/html CHIEF COMPLAINT:COPD. HISTORY OF PRESENT ILLNESS:The patient returns today for follow-up accompanied by her . I have not seen her since the fall. In the interim, she thinks she has gotten progressively worse. She has chronic shortness of breath with all physical activity. She has a daily cough. Most of the time it is dry. She wheezes daily. She is still smoking around a pack of cigarettes a day. I clarified her smoking history. She started in her mid-30s (maintains she did not smoke before that). Most of the time, she has been a 2-pack a day smoker. She has now tapered down to about a pack of cigarettes a day. She is tolerating the Symbicort without any side effects. She is tolerating the Spiriva without any side effects. She takes her rescue medicine 3 times a day. She bought an oxygen concentrator and it is in her house, but it is really not functioning and she said she is not using it. She has not been treated for any exacerbations with prednisone since I saw her last. Emmett Lloyd MD [address] [place] [address], [phone], [facility] 05/18/2024 16:30:47 05/18/2024 text/html CHIEF COMPLAINT:Discuss CAT scan results, COPD. HISTORY OF PRESENT ILLNESS:The patient returns today for follow-up accompanied by her . Since I last saw her, there has been no significant interval change in her respiratory health. Her COPD has been stable. The patient has had a runny nose this winter but does not feel sick. She denied fever, chills or sweats. She does not feel she has a lower respiratory tract infection. Emmett Lloyd MD [address] [place] [address], [phone], [facility] 05/18/2024 19:14:58 OBGyn Episode No OBEpisode recorded.
--- OUTSIDE RECORDS SUMMARY | 2024-07-21 11:22 | XMS_ITS | Encounter Summary ---
Author Organization [facility] Address [facility] [place] [address] Care Team Providers Care Bulk Mail Clerk Name Role Phone Russ Bravo MD Unavailable Unavailable Cris Lloyd CASING IN LINE SETTER Primary Care Provider [phone] Prudence Alfred [facility] Primary Care Provider [phone] Rajesh Gutiérrez MD Unavailable UnavailMoises Romano MD Unavailable [phone] Emmett Perez MD Unavailable [phone] Encounter Details Date Type Department Care Team ([facility] Contact Info) Description 05/14/2018 Abstract [employer] INFO SRVCS Scanned, Documents Social History Tobacco Use Types Packs/Day Years Used Date Smoking Tobacco: Some Days Smokeless Tobacco: Never Comments:Started smoking at age 30. Smoked 1.5 - 2 packs per day. Will still have a cigarette from time to time. Comments Unknown Sex and Gender Information Value Date Recorded Sex Assigned at Not on file Legal Sex Female 8:03 PM CDT Gender Identity Not on file Sexual Orientation Not on file documented as of this encounter Plan of Treatment Not on file documented as of this encounter Visit Diagnoses Not on filedocumented in this encounter Care Teams Bulk Mail Clerk Relationship Specialty Start Date End Date Cris Lloyd NP PCP - General 01/10/18 01/11/20 Prudence Alfred [facility] [address] [place] [address] PCP - General NURSE PRACTITIONER 08/17/20 Russ Bravo MD CARDIOVASCULAR DISEASE 12/01/15 04/07/19 Rajesh Gutiérrez MD [address] [place] [address] Consulting Physician CARDIOVASCULAR DISEASE 12/20/20 Moises Christianson MD [address] [place] [address] RECONSTRUCTIVE SURGERY 12/28/20 Emmett Perez MD [address] [place] [address] Consulting Physician PULMONARY DISEASE 04/07/23 documented as of this encounter
--- OUTSIDE RECORDS SUMMARY | 2024-07-21 11:22 | XMS_ITS | Encounter Summary ---
Author Organization [facility] Address [address] [place] [address] Care Team Providers Care Microfilm Operator Name Role Phone Russ Bravo MD Unavailable Unavailable Cris Lloyd NP Primary Care Provider [phone] [facility] Primary Care Provider [phone] Rajesh Gutiérrez MD Unavailable UnavailMoises Romano MD Unavailable [phone] Emmett Perez MD Unavailable [phone] Encounter Details Date Type Department Care Team (Late st Contact Info) Description 09/05/2018 Abstract [facility] [address] [place] [address] , Generic Conversion, Social History Tobacco Use Types Packs/Day Years [...] on filedocumented in this encounter Care Teams Microfilm Operator Relationship Specialty Start Date End Date Cris Lloyd NP PCP - General 01/10/18 01/11/20 Prudence Alfred FNPBC [address] [place] [address] PCP - General NURSE PRACTITIONER 08/17/20 Russ Bravo MD CARDIOVASCULAR DISEASE 12/01/15 04/07/19 Rajesh Gutiérrez MD [address] [place] [address] Consulting Physician CARDIOVASCULAR DISEASE 12/20/20 Moises Christianson MD [address] [place] [address] RECONSTRUCTIVE SURGERY 12/28/20 Emmett Perez MD [address] [place] [address] Consulting Physician PULMONARY DISEASE 04/07/23 documented as of this encounter
--- OUTSIDE RECORDS SUMMARY | 2024-07-21 12:15 | XMS_ITS | Encounter Summary ---
Author Organization [facility] Address [facility] [place] [address] Care Team Providers Care Treasury Assistant Name Role Phone Russ Bravo MD Unavailable Unavailable Cris Lloyd BILINGUAL MEDICAL ASSISTANT Primary Care Provider [phone] Prudence Alfred [facility] Primary Care Provider [phone] Rajesh Gutiérrez MD Unavailable UnavailMoises Romano MD Unavailable [phone] Emmett Perez MD Unavailable [phone] Encounter Details Date Type Department Care Team ([facility] Contact Info) Description 05/14/2018 Abstract [employer] INFO SRVCS Scanned, Documents Social History Tobacco [...] on filedocumented in this encounter Care Teams Treasury Assistant Relationship Specialty Start Date End Date Cris Lloyd NP PCP - General 01/10/18 01/11/20 [facility]udence [facility] [address] [place] [address] PCP - General NURSE PRACTITIONER 08/17/20 Russ Bravo MD CARDIOVASCULAR DISEASE 12/01/15 04/07/19 Rajesh Gutiérrez MD [address] [place] [address] Consulting Physician CARDIOVASCULAR DISEASE 12/20/20 Moises Christianson MD [address] [place] [address] RECONSTRUCTIVE SURGERY 12/28/20 Emmett Perez MD [address] [place] [address] Consulting Physician PULMONARY DISEASE 04/07/23 documented as of this encounter
--- OUTSIDE RECORDS SUMMARY | 2024-07-21 12:15 | XMS_ITS | Encounter Summary ---
Author Organization [facility] Address [address] [place] [address] Care Team Providers Care Vaccine Customer Representative Name Role Phone Russ Bravo MD Unavailable Unavailable Cris Lloyd NP Primary Care Provider [phone] [facility] Primary Care Provider [phone] Rajesh Gutiérrez MD Unavailable UnavailMoises Romano MD Unavailable [phone] Emmett Perez MD Unavailable [phone] Encounter Details Date Type Department Care Team (Late st Contact Info) Description 09/05/2018 Abstract [facility] CONVERSION [address] [place] [address] , Generic Conversion, Social History Tobacco Use [...] on filedocumented in this encounter Care Teams Vaccine Customer Representative Relationship Specialty Start Date End Date Cris Lloyd NP PCP - General 01/10/18 01/11/20 Prudence Alfred FNPBC [address] [place] [address] PCP - General NURSE PRACTITIONER 08/17/20 Russ Bravo MD CARDIOVASCULAR DISEASE 12/01/15 04/07/19 Rajesh Gutiérrez MD [address] [place] [address] Consulting Physician CARDIOVASCULAR DISEASE 12/20/20 Moises Christianson MD [address] [place] [address] RECONSTRUCTIVE SURGERY 12/28/20 Emmett Perez MD [address] [place] [address] Consulting Physician PULMONARY DISEASE 04/07/23 documented as of this encounter
--- OUTSIDE RECORDS SUMMARY | 2024-07-21 12:15 | XMS_ITS | Clinical Summary ---
Author Organization [facility] Address [facility] [place] [address] Care Team Providers Care Agriculture Extension Specialist Name Role Phone Prudence Alfred [facility] Primary Care Provider + [phone] Rajesh Gutiérrez MD Unavailable Unavailabl Moises Russo MD Unavailable [phone] Emmett Perez MD Unavailable [phone] Allergies Active Allergy Reactions Criticality Noted Date [...] both upper extremities 08/18/2020 COPD, very severe ([facility]) 11/27/2018 S/P pneumonectomy 11/27/2018 Requires supplemental oxygen [...] Comments Blood Pressure 120/84 04/07/2023 10:43 AM BILLET HEATER Pulse 66 04/07/2023 1:17 PM BILLET HEATER Temperature 37.2 C (99 F) 07/17/2022 11:04 AM CDT Respiratory Rate 16 04/07/2023 10:43 AM BILLET HEATER Oxygen Saturation 92% 04/07/2023 10:43 AM BILLET HEATER Inhaled Oxygen Concentration - - Weight 39.5 kg (87 lb) 04/07/2023 10:43 AM BILLET HEATER Height 152.4 cm (5') 04/07/2023 10:43 AM BILLET HEATER Body Mass Index 16.99 04/07/2023 10:43 AM BILLET HEATER Plan of Treatment Health Maintenance Due Date [...] patient's age to complete this topic Insurance [facility] Care Teams Agriculture Extension Specialist Relationship Specialty Start Date End Date Prudence Alfred DECK ENGINEER- [address] [place] [address] PCP - General NURSE PRACTITIONER 08/17/20 Rajesh Gutiérrez MD [address] [place] [address] Consulting Physician CARDIOVASCULAR DISEASE 12/20/20 Moises Christianson MD [address] [place] [address] RECONSTRUCTIVE SURGERY 12/28/20 Emmett Perez MD [facility] [place] [address] Consulting Physician PULMONARY DISEASE 04/07/23
--- OUTSIDE RECORDS SUMMARY | 2024-07-21 12:15 | XMS_ITS | Encounter Summary ---
Author Organization [facility] Address [address] [place] [address] Care Team Providers Care Surgical Device Sales Representative Name Role Phone Prudence Alfred [facility] Primary Care Provider [phone] Rajesh Gutiérrez MD Unavailable Unavailabl Moises Russo MD Unavailable [phone] Emmett Perez MD Unavailable [phone] Encounter Details Date Type Department Care Team (Late st Contact Info) Description 12/22/2020 Abstract [facility] [address] [place] [id number] Rajesh Gutiérrez MD Social History Tobacco Use [...] on filedocumented in this encounter Care Teams Surgical Device Sales Representative Relationship Specialty Start Date End Date Tima Prudence [facility] [address] [place] [address] PCP - General NURSE PRACTITIONER 08/17/20 Rajesh Gutiérrez MD [address] [place] [address] Consulting Physician CARDIOVASCULAR DISEASE 12/20/20 Moises Christianson MD [address] [place] [address] RECONSTRUCTIVE SURGERY 12/28/20 Emmett Perez MD [facility] [place] [address] Consulting Physician PULMONARY DISEASE 04/07/23 documented as of this encounter
== END 2024-07-21 10:45 | disposition home or self-care (01) ==
PROVIDERS: Emergency Provider Internal Medicine Critical Care Medicine
DX: H60.90 Unspecified otitis externa, unspecified ear (principal); J32.9 Chronic sinusitis, unspecified; J44.9 Chronic obstructive pulmonary disease, unspecified; I10 Essential (primary) hypertension; Z87.891 Personal history of nicotine dependence
CPT/HCPCS: 99283

== ENCOUNTER 2025-01-18 11:13 | Observation (INO) | payer OTHER, SELFPAY ==
[2025-01-18] VITALS (18 sets, daily range): BP systolic 152–169; BP diastolic 95–112; PULSE 76–135; RESP 16–24; TEMP 36.6–37.4; O2SAT 93–100; BMI 17.9
--- NOTE | ~2025-01-18 | XR_ITS ---
EXAMINATION: XR chest 1V portable COMPARISON: No comparisons available. HISTORY: sob FINDINGS: COPD changes. Moderate left basilar infiltrate and effusion. No pneumothorax. Heart is normal size. Mediastinal and hilar contours are within normal limits. Bony thorax no acute abnormality. Miscellaneous: None Impression: Left lower lobe pneumonia. The findings appear relatively unchanged Reviewed, dictated and finalized at location P. Impression: Left lower lobe pneumonia. The findings appear relatively unchanged
--- NOTE | ~2025-01-18 | CT_ITS ---
CTA CHEST CLINICAL HISTORY: elev dimer/sob . COMPARISON: Chest x-ray today X-rays 04/28/2019 TECHNIQUE: Helical CTA performed from thoracic inlet to upper abdomen 100 mL Omnipaque 350 Coronal, sagittal reformats. Multiplanar MIPS CT images acquired with automatic exposure control for dose reduction DLP: 154 mGy-cm FINDINGS: Pulmonary arteries: No PE. Thoracic Aorta: No dissection or aneurysm. Heart/pericardium: Unremarkable. RV/LV ratio: Normal. Lungs/Pleura: Left pneumonectomy. Unchanged scarring left apical thoracic space with unchanged small nodular focus within scar tissue. Small focal pneumonitis medial right lower lobe Tracheobronchial tree: Patent. Nodes: No enlarged nodes. Bones: No acute bony abnormality. Soft tissues: Unremarkable. Visualized upper abdomen: Hepatic steatosis. IMPRESSION: 1. No PE right lung. 2. Left pneumonectomy. 3. Tiny focal pneumonitis right lower lobe. 4. No other acute abnormality. Reviewed, dictated and finalized at location R.
--- NOTE | 2025-01-18 11:21 | ED.URI ---
HPI - URI/Sore Throat General Chief Complaint: Upper Respiratory Infection Stated Complaint: body aches, fever, chills Time Seen by Provider: 01/18/25 11:20 Source: patient Mode of arrival: ambulatory Limitations: no limitations History of Present Illness HPI Narrative: Patient is a 49-year-old female with only a right lung since childhood here with cough and congestion of the chest for the past week. Fever and chills. 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) Onset (ago): day(s) (Seven) Consistency: constant Severity: mild Pain scale (0-10): 2 Description of mucous: yellow and green Able to tolerate fluids by mouth: Yes Exacerbating factors: exertion and deep breaths Relieving factors: nothing Context: other (Patient has worsening chest congestion over the past week with fever and chills) Associated symptoms: fever, chills, cough and shortness of breath Treatments prior to arrival: none Related Data Home Medications ?Medication ?Instructions ?Recorded ?Confirmed ?Last Taken ?Type albuterol sulfate 0.63 mg/3 mL 0.63 mg inhalation Q4H PRN 04/28/19 08/20/22 Unknown History solution for nebulization Shortness Of Breath albuterol sulfate 90 mcg/actuation 2 puff inhalation QID PRN 04/28/19 08/20/22 Unknown History aerosol inhaler (ProAir HFA) Shortness Of Breath budesonide-formoterol HFA 160 2 puff inhalation Q12H 04/28/19 08/20/22 Unknown History mcg-4.5 mcg/actuation aerosol inhaler (Symbicort) Allergies Allergy/AdvReac Type Severity Reaction Status Date / Time aspirin Allergy Unknown Verified 01/18/25 11:34 benzonatate (From Tessalon Allergy Unknown Verified 01/18/25 11:34 Perles) Penicillins Allergy Unknown Verified 01/18/25 11:34 Sulfa (Sulfonamide Allergy Unknown Verified 01/18/25 11:34 Antibiotics) Review of Systems Review of Systems: All systems reviewed & are unremarkable except as noted in HPI and below Constitutional: Constitutional: Reports no additional constitutional complaints Eyes: Eyes: Reports no additional eye complaints ENT: Reports system reviewed and no additional complaints, except as documented Cardiovascular: Cardiovascular: Reports no additional cardiovascular complaints Respiratory: Respiratory: Reports no additional respiratory complaints Gastrointestinal: Gastrointestinal: Reports no additional gastrointestinal complaints Genitourinary: Genitourinary: Reports no additional female genitourinary complaints Musculoskeletal: Musculoskeletal: Reports no additional musculoskeletal complaints Integumentary/Breasts: Skin/Breast: Reports system reviewed and no additional complaints, except as docu Neurologic: Reports system reviewed and no additional complaints, except as documented Psychiatric: Psychiatric: Reports no additional psychiatric complaints Endocrine: Endocrine: Reports no additional endocrine complaints Hematologic/Lymphatic: Hematologic/Lymphatic: Reports no additional hematologic/lymphatic complaints Allergic/Immunologic: Allergic/Immunologic: Reports no additional allergic/immunologic complaints PMFSH Past Medical History Medical History Toothache Anxiety COPD (chronic obstructive pulmonary disease) Hypertension Surgical History Surgical History Ulnar nerve entrapment History of carpal tunnel surgery History of section S/P lobectomy of lung Social History Social History Smoking status: Former smoker Alcohol intake: former Substance use: never Living arrangements: with family Exam Const: General: ill appearing Nutritional Appearance: well nourished Orientation/consciousness: patient oriented x3 Limitations: no limitations HENMT: Head: normal to inspection Ears: external ears normal Face/Nose/Sinus: Normal external nose present Eyes: Conjunctivae: conjunctivae normal Pupils: Equal, round and reactive pupils present EOM: EOMs intact bilaterally Neck: Neck: normal visual inspection Chest: Chest palpation & inspection: normal inspection of the chest Resp: Effort & Inspection: abnormal respiratory effort, not labored, no retractions, tachypneic and no use of accessory muscles Auscultation: not clear to auscultation bilaterally, crackles, rales, rhonchi, wheezes, breath sounds present and diminished lung sounds Other: The entire right lung has all the adventitious sounds; left lung is absent Cardio: Rate: tachycardic Rhythm: regular rhythm Heart sounds: no murmurs GI: Inspection: non-distended GI Palp: Yes Soft to palpation and No Tenderness to palpation present (GI) Auscultation: normal bowel sounds : General: Yes bladder normal to palpation Back/Spine/Pelvis: Back: no CVA tenderness Skin: General skin exam: normal color Rashes: no rashes Wounds: no wounds Neuro: General: patient oriented x3, moves all extremities and no meningeal signs Extrem: General: normal to inspection, no clubbing, cyanosis or edema and no pedal edema Other: No calf pain bilaterally or swelling; wells criteria is 0 Psych: Mental Status: mental status grossly normal Affect: normal affect Attitude: cooperative Course Vital Signs Vital signs: Vital Signs Temperature 37.4 C 01/18/25 11:13 Pulse Rate 135 H 01/18/25 11:13 Respiratory Rate 24 H 01/18/25 11:13 Blood Pressure 163/103 H 01/18/25 11:13 Pulse Oximetry 95 01/18/25 11:13 Oxygen Delivery Room Air 01/18/25 11:13 Temperature 37.4 C 01/18/25 11:13 Pulse Rate 134 H 01/18/25 12:02 Respiratory Rate 24 H 01/18/25 12:02 Blood Pressure 163/103 H 01/18/25 11:13 Pulse Oximetry 100 01/18/25 12:02 Oxygen Delivery Room Air 01/18/25 11:13 Oxygen Flow Rate 0 01/18/25 12:02 MDM - URI/Sore Throat MDM Narrative Medical decision making narrative: Patient is a 49-year-old female with 1 long here with chest congestion and shortness of breath. Sick for 1 week. Pulmonary workup. DuoNeb. Solu-Medrol. IV fluid for sepsis. Levaquin. Due to the fact that she has 1 lung and sepsis criteria we will admit for continued treatment. Lab Data Attestation: I reviewed the patient's lab results. 01/18/25 11:56 01/18/25 11:56 Labs: Lab Results 01/18/25 01/18/25 Range/Units 11:24 11:56 WBC 5.6 (4.8-10.8) K/mm3 RBC 4.68 (4.20-5.40) M/mm3 Hgb 14.8 (12.0-15.0) g/dL Hct 43.5 (35.0-49.0) % MCV 92.9 (78.0-102.0) fL MCH 31.6 H (27.0-31.0) pg MCHC 34.0 (32-36) g/dL RDW 13.2 (11.6-14.4) % Plt Count 183 (150-420) K/mm3 MPV 9.4 (9.2-11.8) fl Immature Gran % (Auto) 0.5 H (0.0-0.0) % Neut % (Auto) 80.4 H (50.0-70.0) % Lymph % (Auto) 13.4 L (18.0-42.0) % [place] % (Auto) 5.0 (2.0-11.0) % Eos % (Auto) 0.0 L (1.0-6.0) % Baso % (Auto) 0.7 (0.0-1.0) % Lymph # (Auto) 0.75 L (1.10-4.50) K/mm3 [place] # (Auto) 0.28 (0.10-0.90) K/mm3 Eos # (Auto) 0.00 L (0.02-0.50) K/mm3 Baso # (Auto) 0.04 (0.00-0.10) K/mm3 Abs Immat Gran (auto) 0.03 H (0.00-0.00) K/mm3 Absolute Neuts (auto) 4.48 (1.70-7.20) K/mm3 Absolute Nucleated RBC 0.00 (0.00-0.00) K/mm3 Nucleated RBC % 0.0 (0-0.0) % D-Dimer 3.92 H (0.19-0.50) mg/L Sodium 132 L (137-145) mmol/L Potassium 4.4 (3.4-5.0) mmol/L Chloride 97 L (98-107) mmol/L Carbon Dioxide 25 (22-30) mmol/L Anion Gap 10 (4-12) mmol/L BUN 4 L (7-17) mg/dL Creatinine 0.67 L (0.7-1.0) mg/dL Estim Creat Clear Calc 56 ml/min Estimated GFR > 60 (59 - ) Glucose 311 H (65-110) mg/dL Calculated Osmolality 282 L (285-295) mOsm/kg Lactic Acid 1.1 (0.4-2.0) mmol/L Calcium 9.4 (8.4-10.2) mg/dL Total Bilirubin 0.5 (0.2-1.3) mg/dL AST 97 H (14-36) U/L ALT 66 H (6-35) U/L Alkaline Phosphatase 97 (38-126) U/L Troponin I < 0.012 (0.000-0.034) ng/mL NT-Pro-B Natriuret Pep 589 H (19.9-100) pg/mL Total Protein 9.1 H (6.3-8.2) g/dL Albumin 4.6 (3.5-5.1) g/dL Influenza A (RT-PCR) Negative (Negative) Influenza B (RT-PCR) Negative (Negative) RSV (RT-PCR) Negative (Negative) SARS-CoV-2 RNA (RT-PCR) Negative (Negative) Imaging Data Attestation: I personally reviewed and interpreted this imaging study as follows: Radiologist's impression: Chest x-ray shows left lower lobe pneumonia ECG Data EKG #1: Attestation: I personally reviewed and interpreted this ECG as follows: ECG completion date: 01/18/25 ECG completion time: 12:02 Interpretation: Sepsis patient EKG Interpretation: tachycardia, sinus rhythm, no ectopy, non-specific ST changes, normal QRS, normal QT and right axis Discharge Plan Discharge Clinical Impression: Acute exacerbation of chronic obstructive pulmonary disease Pneumonia Qualifiers: Pneumonia type: due to unspecified organism Laterality: unspecified laterality Lung location: unspecified part of lung Qualified Code(s): J18.9 - Pneumonia, unspecified organism Patient Disposition: Acute Care Hospital [facility] Condition: Stable Patient Language: Maltese Prescriptions: No Action clindamycin HCl 300 mg capsule 300 mg PO Q6H Qty: 40 0RF ibuprofen 600 mg tablet 600 mg PO TID Qty: 20 0RF omeprazole magnesium [Prilosec OTC] 20 mg tablet,delayed release (DR/EC) 20 mg PO BID Qty: 20 0RF azithromycin [Zithromax TRI-JUN] 500 mg tablet 500 mg PO DAILY 3 Days Qty: 3 0RF Cortisporin-TC 3.3-3-10-0.5 mg/mL drops,suspension 1 applic RIGHT EAR Q4H 3 Days Qty: 10 0RF Rx Instructions: apply to (cotton) wick; replace wick every 24 hours albuterol sulfate 0.63 mg/3 mL Solution For Nebulization 0.63 mg INHALATION Q4H PRN (Reason: Shortness Of Breath) albuterol sulfate [ProAir HFA] 90 mcg/actuation Hfa Aerosol Inhaler 2 puff INHALATION QID PRN (Reason: Shortness Of Breath) budesonide-formoterol [Symbicort] 160-4.5 mcg/actuation Hfa Aerosol Inhaler 2 puff INHALATION Q12H hydrocodone-acetaminophen 5-325 mg tablet 1 tablet PO Q8H PRN (Reason: pain) Qty: 10 0RF Follow-up/Referrals: UNKNOWN,DOCTOR [Non-Staff] Time of Disposition: 14:25
--- NOTE | 2025-01-18 11:37 | ECG_ITS ---
Test Date: 2025-01-18 11:48:07 Measurements Intervals [place] Rate: 130 P: 93 TN: 152 QRS: 122 QRSD: 84 T: 78 QT: 294 QTc: 433 Interpretive Statements SINUS TACHYCARDIA RIGHT AXIS DEVIATION CONSIDER RIGHT VENTRICULAR CONDUCTION DELAY ANTEROSEPTAL INFARCT, AGE INDETERMINATE ABNORMAL ECG No previous ECG available for comparison Electronically Signed On 01-18-2025 11:59:37 CDT by Alex Foster D.O.
[2025-01-18] MEDS: IPRATROPIUM 0.5 MG/ALBUTEROL SULFATE 2.5 MG (BASE) AMPUL.NEB 3 ML INHALATION ×2 (11:51→17:08)
[2025-01-18 12:00] LABS: Hematocrit 43.5 % (35.0-49.0); Hemoglobin 14.8 g/dL (12.0-15.0); Immature Granulocyte Percent A 0.5 % (0.0-0.0); Lymphocytes Absolute Auto 0.75 K/mm3 (1.10-4.50); Mean Corpuscular HGB Conc 34.0 g/dL (32-36); Mean Corpuscular Hemoglobin 31.6 pg (27.0-31.0); Mean Corpuscular Volume 92.9 fL (78.0-102.0); Nucleated Red Blood Cells Absolute Auto 0.00 K/mm3 (0.00-0.00); Nucleated Red Blood Cells Perc 0.0 % (0-0.0); Platelet Count Result 183 K/mm3 (150-420); Red Blood Count 4.68 M/mm3 (4.20-5.40); White Blood Count 5.6 K/mm3 (4.8-10.8)
[2025-01-18 12:04] LABS: Influenza A QL RT-PCR Negative (Negative); Influenza B QL RT-PCR Negative (Negative); RSV RNA, RT-PCR Negative (Negative); SARS-CoV-2 RNA PCR Negative (Negative)
[2025-01-18 12:11] LABS: Alanine Aminotransferase 66 U/L (6-35); Albumin Level 4.6 g/dL (3.5-5.1); Alkaline Phosphatase 97 U/L (38-126); Anion Gap 10 mmol/L (4-12); Aspartate Amino Transferase 97 U/L (14-36); Bilirubin,Total 0.5 mg/dL (0.2-1.3); Blood Urea Nitrogen 4 mg/dL (7-17); Calcium 9.4 mg/dL (8.4-10.2); Carbon Dioxide 25 mmol/L (22-30); Chloride 97 mmol/L (98-107); Estimated CRCL calculation 56 ml/min; Estimated Glomerular Filt Rate > 60; Glucose 311 mg/dL (65-110); Osmolality Calculated 282 mOsm/kg (285-295); Potassium 4.4 mmol/L (3.4-5.0); Sodium 132 mmol/L (137-145); Total Protein 9.1 g/dL (6.3-8.2)
[2025-01-18] MEDS: SODIUM CHLORIDE 0.9% IV 1,000 ML 999 ML IV CONT (12:14)
[2025-01-18] MEDS: levoFLOXacin 750 MG/D5W 150 ML 750 MG/150 ML BAG 100 MG IVPB (12:14)
[2025-01-18 12:20] LABS: NT Pro B Type Natriuretic Pept 589 pg/mL (19.9-100)
[2025-01-18 12:23] LABS: Troponin I < 0.012 ng/mL (0.000-0.034)
--- OUTSIDE RECORDS SUMMARY | 2025-01-18 14:08 | XMS_ITS | Clinical Summary ---
Author Organization [facility] [place] [facility] Address [facility] access hospital[address] [place] [address] Care Team Providers Care Patient Accounts Manager Name Role Phone Prudence Alfred [facility] Primary Care Provider + [phone] Rajesh Gutiérrez MD Unavailable Unavailabl Moises Russo MD Unavailable [phone] Emmett Perez MD Unavailable [phone] Allergies Active Allergy Reactions Criticality Noted Date [...] both upper extremities 08/18/2020 COPD, very severe 11/27/2018 S/P pneumonectomy 11/27/2018 Requires supplemental oxygen [...] Comments Blood Pressure 120/84 04/07/2023 10:43 AM DRY CLEANING COUNTER CLERK Pulse 66 04/07/2023 1:17 PM DRY CLEANING COUNTER CLERK Temperature 37.2 C (99 F) 07/17/2022 11:04 AM CDT Respiratory Rate 16 04/07/2023 10:43 AM DRY CLEANING COUNTER CLERK Oxygen Saturation 92% 04/07/2023 10:43 AM DRY CLEANING COUNTER CLERK Inhaled Oxygen Concentration - - Weight 39.5 kg (87 lb) 04/07/2023 10:43 AM DRY CLEANING COUNTER CLERK Height 152.4 cm (5') 04/07/2023 10:43 AM DRY CLEANING COUNTER CLERK Body Mass Index 16.99 04/07/2023 10:43 AM DRY CLEANING COUNTER CLERK Plan of Treatment Health Maintenance Due Date Last Done Comments Cervical Cancer Screening Pa p Smear (Age 30 to 64) Every 3 Years 1973 Colorectal Cancer Screening Colonoscopy (10 Years) 1973 Annual Physical 1976 Hepatitis C 1991 DTaP, Tdap and Td Vaccines ( 1 - Tdap) 1992 Hepatitis B Vaccines (1 of 3 - 19+ 3-dose series) 1992 Pneumococcal Vaccine: 50+ Years (1 of 2 - PCV) 1992 Cervical Cancer Screening Pa p with HPV Testing (Age 30 to 64) Every 5 Years 2003 Cervical Cancer Screening wi th HPV 2003 Mammogram Screening 2013 Zoster Vaccines (1 of 2) 2023 COVID-19 Vaccine (2024-2 6 season) 2024 Influenza Adult (#1) 2024 01/05/2019, 05/14/2018, 03/05/2017 Hepatitis A Vaccines Aged Out No long er eligible based on patient's age to complete this topic Meningococcal B Vaccine Aged Out No l onger eligible based on patient's age to complete this topic Meningococcal Vaccine Aged Out No luke carlos eligible based on patient's age to complete this topic RSV Immunizations Under 20 Months Aged Out No longer eligible b ased on patient's age to complete this topic Insurance [employer] MEDICAID Care Teams Patient Accounts Manager Relationship Specialty Start Date End Date Prudence Alfred FNP- [address] [place] [phone] PCP - General NURSE PRACTITIONER 08/17/20 Rajesh Gutiérrez MD [address] [place] [address] Consulting Physician CARDIOVASCULAR DISEASE 12/20/20 Moises Christianson MD [address] [place] [address] RECONSTRUCTIVE SURGERY 12/28/20 Emmett Perez MD [address] [place] [address] Consulting Physician PULMONARY DISEASE 04/07/23
--- OUTSIDE RECORDS SUMMARY | 2025-01-18 14:08 | XMS_ITS | Encounter Summary ---
Author Organization [facility] Address [address] [place] [address] Care Team Providers Care Occupational Therapy Asst Name Role Phone Russ Bravo MD Unavailable Unavailable Cris Lloyd NP Primary Care Provider [phone] [facility] Primary Care Provider [phone] Rajesh Gutiérrez MD Unavailable UnavailMoises Romano MD Unavailable [phone] Emmett Perez MD Unavailable [phone] Encounter Details Date Type Department Care Team (Late st Contact Info) Description 09/05/2018 Abstract [facility] CONVERSION [address] [place] [address] , Generic Conversion, Social History Tobacco Use [...] on filedocumented in this encounter Care Teams Occupational Therapy Asst Relationship Specialty Start Date End Date Cris Lloyd NP PCP - General 01/10/18 01/11/20 Prudence Alfred FNPBC [address] [place] [address] PCP - General NURSE PRACTITIONER 08/17/20 Russ Bravo MD CARDIOVASCULAR DISEASE 12/01/15 04/07/19 Rajesh Gutiérrez MD [address] [place] [address] Consulting Physician CARDIOVASCULAR DISEASE 12/20/20 Moises Christianson MD [address] [place] [address] RECONSTRUCTIVE SURGERY 12/28/20 Emmett Perez MD [address] [place] [address] Consulting Physician PULMONARY DISEASE 04/07/23 documented as of this encounter
--- OUTSIDE RECORDS SUMMARY | 2025-01-18 14:08 | XMS_ITS | Encounter Summary ---
Author Organization [facility] Address [address] [place] [address] Care Team Providers Care Subpoena Server Name Role Phone Prudence Alfred [facility] Primary Care Provider [phone] Rajesh Gutiérrez MD Unavailable Unavailabl Moises Russo MD Unavailable [phone] Emmett Perez MD Unavailable [phone] Encounter Details Date Type Department Care Team (Late st Contact Info) Description 12/22/2020 Abstract [facility] [address] [place] [id number] Rajesh Gutiérrez MD Social History Tobacco Use [...] on filedocumented in this encounter Care Teams Subpoena Server Relationship Specialty Start Date End Date Tima Prudence [facility] [address] [place] [address] PCP - General NURSE PRACTITIONER 08/17/20 Rajesh Gutiérrez MD [address] [place] [address] Consulting Physician CARDIOVASCULAR DISEASE 12/20/20 Moises Christianson MD [address] [place] [address] RECONSTRUCTIVE SURGERY 12/28/20 Emmett Perez MD [facility] [place] [address] Consulting Physician PULMONARY DISEASE 04/07/23 documented as of this encounter
--- OUTSIDE RECORDS SUMMARY | 2025-01-18 14:08 | XMS_ITS | Encounter Summary ---
Author Organization [facility] Address [facility] [place] [address] Care Team Providers Care Electrical And Instrumentation Mechanic Name Role Phone Russ Bravo MD Unavailable Unavailable Cris Lloyd [employer] Primary Care Provider [phone] Prudence Alfred [facility] Primary Care Provider [phone] Rajesh Gutiérrez MD Unavailable UnavailMoises Romano MD Unavailable [phone] Emmett Perez MD Unavailable [phone] Encounter Details Date Type Department Care Team ([facility] Contact Info) Description 05/14/2018 Abstract [facility] Scanned, Documents Social History Tobacco [...] on filedocumented in this encounter Care Teams Electrical And Instrumentation Mechanic Relationship Specialty Start Date End Date Cris Lloyd NP PCP - General 01/10/18 01/11/20 [facility] [address] [place] [address] PCP - General NURSE PRACTITIONER 08/17/20 Russ Bravo MD CARDIOVASCULAR DISEASE 12/01/15 04/07/19 Rajesh Gutiérrez MD [address] [place] [address] Consulting Physician CARDIOVASCULAR DISEASE 12/20/20 Moises Christianson MD [address] [place] [address] RECONSTRUCTIVE SURGERY 12/28/20 Emmett Perez MD [address] [place] [address] Consulting Physician PULMONARY DISEASE 04/07/23 documented as of this encounter
--- NOTE | 2025-01-18 14:35 | PC.NURSE ---
PATIENT TO BE ADMITTED TO ROOM 209
[2025-01-18] MEDS: SODIUM CHLORIDE 0.9% IV 500 ML 999 ML IV CONT (14:48)
--- OUTSIDE RECORDS SUMMARY | 2025-01-18 15:02 | XMS_ITS | Clinical Summary ---
Author Organization [facility] [place] Address [facility] [place] [address] Care Team Providers Care Documentation Billing Clerk Name Role Phone Prudence Alfred [facility] Primary Care Provider + [phone] Rajesh Gutiérrez MD Unavailable Unavailabl Moises Russo MD Unavailable [phone] Emmett Peerz MD Unavailable [phone] Allergies Active Allergy Reactions Criticality Noted Date [...] Comments Blood Pressure 120/84 04/07/2023 10:43 AM CRIMINAL JUSTICE PROGRAM DIRECTOR Pulse 66 04/07/2023 1:17 PM CRIMINAL JUSTICE PROGRAM DIRECTOR Temperature 37.2 C (99 F) 07/17/2022 11:04 AM CDT Respiratory Rate 16 04/07/2023 10:43 AM CRIMINAL JUSTICE PROGRAM DIRECTOR Oxygen Saturation 92% 04/07/2023 10:43 AM CRIMINAL JUSTICE PROGRAM DIRECTOR Inhaled Oxygen Concentration - - Weight 39.5 kg (87 lb) 04/07/2023 10:43 AM CRIMINAL JUSTICE PROGRAM DIRECTOR Height 152.4 cm (5') 04/07/2023 10:43 AM CRIMINAL JUSTICE PROGRAM DIRECTOR Body Mass Index 16.99 04/07/2023 10:43 AM CRIMINAL JUSTICE PROGRAM DIRECTOR Plan of Treatment Health Maintenance Due Date [...] this topic Insurance [employer] MEDICAID Care Teams Documentation Billing Clerk Relationship Specialty Start Date End Date Prudence Alfred FNP- [address] [phone] PCP - General NURSE PRACTITIONER 08/17/20 Rajesh Gutiérrez MD [address] [place] [address] Consulting Physician CARDIOVASCULAR DISEASE 12/20/20 Moises Christianson MD [address] [place] [address] RECONSTRUCTIVE SURGERY 12/28/20 Emmett Perez MD [address] [place] [address] Consulting Physician PULMONARY DISEASE 04/07/23
--- OUTSIDE RECORDS SUMMARY | 2025-01-18 15:02 | XMS_ITS | Encounter Summary ---
Author Organization [facility] Address [address] [place] [address] Care Team Providers Care University Lecturer Name Role Phone Russ Bravo MD Unavailable Unavailable Cris Lloyd NP Primary Care Provider [phone] [facility] Care Provider [phone] Rajesh Gutiérrez MD Unavailable UnavailMoises Romano MD Unavailable [phone] Emmett Perez MD Unavailable [phone] Encounter Details Date Type Department Care Team (Late st Contact Info) Description 09/05/2018 Abstract [facility] [address] [place] [address] , Generic Conversion, Social History Tobacco Use [...] on filedocumented in this encounter Care Teams University Lecturer Relationship Specialty Start Date End Date Cris Lloyd NP PCP - General 01/10/18 01/11/20 Prudence Alfred FNPBC [address] [place] [address] PCP - General NURSE PRACTITIONER 08/17/20 Russ Bravo MD CARDIOVASCULAR DISEASE 12/01/15 04/07/19 Rajesh Gutiérrez MD [address] [place] [address] Consulting Physician CARDIOVASCULAR DISEASE 12/20/20 Moises Christianson MD [address] [place] [address] RECONSTRUCTIVE SURGERY 12/28/20 Emmett Perez MD [address] [place] [id number] Consulting Physician PULMONARY DISEASE 04/07/23 documented as of this encounter
--- OUTSIDE RECORDS SUMMARY | 2025-01-18 15:02 | XMS_ITS | Encounter Summary ---
Author Organization [facility] Address [facility] [place] [address] Care Team Providers Care Bar Attendant Name Role Phone Russ Bravo MD Unavailable Unavailable Cirs Lloyd [employer] Primary Care Provider [phone] Prudence Alfred [facility] Primary Care Provider [phone] Rajesh Gutiérrez MD Unavailable UnavailMoises Romano MD Unavailable [phone] Emmett Perez MD Unavailable [phone] Encounter Details Date Type Department Care Team ([facility] Contact Info) Description 05/14/2018 Abstract [employer] INFO SRVCS Scanned, Documents Social History Tobacco [...] on filedocumented in this encounter Care Teams Bar Attendant Relationship Specialty Start Date End Date Cris Lloyd NP PCP - General 01/10/18 01/11/20 [facility] [address] [place] [address] PCP - General NURSE PRACTITIONER 08/17/20 Russ Bravo MD CARDIOVASCULAR DISEASE 12/01/15 04/07/19 Rajesh Gutiérrez MD [address] [place] [address] Consulting Physician CARDIOVASCULAR DISEASE 12/20/20 Moises Christianson MD [address] [place] [address] RECONSTRUCTIVE SURGERY 12/28/20 Emmett Perez MD [address] [place] [id number] Consulting Physician PULMONARY DISEASE 04/07/23 documented as of this encounter
--- OUTSIDE RECORDS SUMMARY | 2025-01-18 15:02 | XMS_ITS | Encounter Summary ---
Author Organization [facility] Address [address] [place] [address] Care Team Providers Care Slip Sheeter Name Role Phone Prudence Alfred [facility] Primary Care Provider [phone] Rajesh Gutiérrez MD Unavailable Unavailabl Moises Russo MD Unavailable [phone] Emmett Perez MD Unavailable [phone] Encounter Details Date Type Department Care Team (Late st Contact Info) Description 12/22/2020 Abstract [facility] [address] [place] [id number] Rajesh Gutiérrez MD Social History Tobacco Use [...] on filedocumented in this encounter Care Teams Slip Sheeter Relationship Specialty Start Date End Date Tima Prudence [facility] [address] [place] [address] PCP - General NURSE PRACTITIONER 08/17/20 Rajesh Gutiérrez MD [address] [place] [address] Consulting Physician CARDIOVASCULAR DISEASE 12/20/20 Moises Christianson MD [address] [place] [address] RECONSTRUCTIVE SURGERY 12/28/20 Emmett Perez MD [facility] [place] [address] Consulting Physician PULMONARY DISEASE 04/07/23 documented as of this encounter
[2025-01-18 17:06] LABS: Add Urine Microscopic? NO; Appearance Urine Clear (Clear); Glucose Urine UA 2+ (Negative); Leukocyte Esterase Ur Negative LEU/UL (Negative); Nitrate Urine Negative (Negative); Specific Grav Ur <= 1.005 (1.010-1.020)
[2025-01-18] MEDS: LOSARTAN POTASSIUM 50 MG TABLET 100 MG PO (17:28)
[2025-01-18] MEDS: ACETAMINOPHEN 325 MG TABLET 650 MG PO ×2 (17:30→21:34)
[2025-01-18] MEDS: BUDESONIDE/FORMOTEROL (*SP) 160-4.5 MCG 6 GM INH 2 PUFF INHALATION (18:58)
--- NOTE | 2025-01-18 19:25 | PC.NURSE ---
Report received from Echo-RN and this RN assumed care of pt at this time. Pt resting in hospital bed complaining of just aching all over. Pt educated about when her next dose of Tylenol is due and pt verbalized understanding. Wheezing noted upon auscultation. Spo2 remains WNL. PIV flushed with NS 5mls with no pain or discomfort. Pt provided with additional water. Pt denies any further needs/concerns at this time. Hospital bed remains in low locked position and call light within pt's reach.
[2025-01-18] MEDS: METOPROLOL SUCCINATE EXT REL 25 MG TABCR PO (21:34)
--- NOTE | 2025-01-18 21:34 | PC.NURSE ---
This RN at bedside to obtain VS and administer medications per MAR. Pt states she is feeling a little better, but still achy. Wheezing still present, but has drastically improved since this RN last in room. Pt provided with additional glass of water and denies any furhter needs/concerns. Hospital bed remains in low locked position and call light within pt's reach.
--- NOTE | 2025-01-18 23:22 | PC.NURSE ---
Pt provided with Diet Pepsi and denies any other needs/concerns at this time. Hospital bed remains in low locked position and call light within pt's reach.
[2025-01-19] VITALS (17 sets, daily range): BP systolic 115–141; BP diastolic 77–106; PULSE 60–86; RESP 16–20; TEMP 36.4–36.9; O2SAT 95–100
[2025-01-19] MEDS: IPRATROPIUM 0.5 MG/ALBUTEROL SULFATE 2.5 MG (BASE) AMPUL.NEB 3 ML INHALATION ×4 (00:07→17:14)
[2025-01-19 05:46] LABS: Hematocrit 36.4 % (35.0-49.0); Hemoglobin 12.4 g/dL (12.0-15.0); Immature Granulocyte Percent A 0.2 % (0.0-0.0); Lymphocytes Absolute Auto 1.27 K/mm3 (1.10-4.50); Mean Corpuscular HGB Conc 34.1 g/dL (32-36); Mean Corpuscular Hemoglobin 31.6 pg (27.0-31.0); Mean Corpuscular Volume 92.6 fL (78.0-102.0); Nucleated Red Blood Cells Absolute Auto 0.00 K/mm3 (0.00-0.00); Nucleated Red Blood Cells Perc 0.0 % (0-0.0); Platelet Count Result 215 K/mm3 (150-420); Red Blood Count 3.93 M/mm3 (4.20-5.40); White Blood Count 5.1 K/mm3 (4.8-10.8)
[2025-01-19 05:57] LABS: Alanine Aminotransferase 40 U/L (6-35); Albumin Level 3.7 g/dL (3.5-5.1); Alkaline Phosphatase 68 U/L (38-126); Anion Gap 7 mmol/L (4-12); Aspartate Amino Transferase 37 U/L (14-36); Bilirubin,Total 0.3 mg/dL (0.2-1.3); Blood Urea Nitrogen 6 mg/dL (7-17); Calcium 9.3 mg/dL (8.4-10.2); Carbon Dioxide 25 mmol/L (22-30); Chloride 105 mmol/L (98-107); Estimated CRCL calculation 73 ml/min; Estimated Glomerular Filt Rate > 60; Glucose 137 mg/dL (65-110); Osmolality Calculated 283 mOsm/kg (285-295); Potassium 4.0 mmol/L (3.4-5.0); Sodium 137 mmol/L (137-145); Total Protein 6.5 g/dL (6.3-8.2)
[2025-01-19] MEDS: BUDESONIDE/FORMOTEROL (*SP) 160-4.5 MCG 6 GM INH 2 PUFF INHALATION ×2 (05:57→17:16)
[2025-01-19] MEDS: ENOXAPARIN 40 MG/0.4 ML SYRINGE SUB-Q (08:07)
[2025-01-19] MEDS: METOPROLOL SUCCINATE EXT REL 25 MG TABCR PO ×2 (08:08→21:07)
[2025-01-19] MEDS: LOSARTAN POTASSIUM 50 MG TABLET 100 MG PO (08:08)
[2025-01-19] MEDS: ACETAMINOPHEN 325 MG TABLET 650 MG PO ×2 (08:08→21:06)
[2025-01-19] MEDS: UMECLIDINIUM BROMIDE 62.5 MCG ELLIPTA 1 PUFF INHALATION (08:09)
--- NOTE | 2025-01-19 10:05 | PM.IMHP ---
H&P: HPI History of Present Illness Date/Time: 01/19/25 10:05 Chief Complaint: Shortness of Breath Narrative: 49-year-old female with a history of right pneumonectomy in childhood, COPD, continue smoker presented to the emergency room with sinus congestion and increased shortness of breath for 1 week without fever or chills. Patient reports she has been seeing her silk snapper and taking her medications as prescribed. While in the emergency room patient was started on Levaquin for suspected pneumonia on CTA chest, Solu-Medrol given. Influenza, RSV, and COVID were negative. Since being admitted, patient reports she is feeling much better at this time. She does report she is working on smoking cessation on her own and has decreased from 2 packs a day down to 6 cigarettes per day. She does report recently starting Chantix for smoking cessation stopped taking. She reports history of home oxygen use and does have some supplies at home does not utilizing her oxygen daily. denies fever, chest pain, abdominal pain or any other complaints Review of Systems Review of Systems: All systems reviewed & are unremarkable except as noted in HPI and below PMFSH Past Medical History Medical History (Updated 01/19/25 @ 10:24 by Michael Zamora APRN) Smoker History of home oxygen therapy Toothache Anxiety COPD (chronic obstructive pulmonary disease) Hypertension Surgical History Surgical History (Updated 01/19/25 @ 10:24 by Michael Zamora APRN) Ulnar nerve entrapment History of carpal tunnel surgery History of section S/P lobectomy of lung LEFT Social History Social History Smoking status: Current some day smoker Tobacco type: cigarettes Second hand tobacco smoke exposure: Yes Alcohol intake: current Drinks per week: 5 Substance use: never Substance use type: does not use Lack of Transportation: No Lack of Food: Never True Current Housing: I Have Housing Concerned About Future Housing: No Difficulty Paying Gas/Electric Bills: No Difficulty Paying for Meds: No Currently Unemployed: No Education: High School Diploma/GED Difficulty w/ Childcare or Family Care: No Living arrangements: with family Spiritual care concerns: No Meds Home Medications and Allergies Home Medications ?Medication ?Instructions ?Recorded ?Confirmed ?Type albuterol sulfate 0.63 mg/3 mL 0.63 mg inhalation Q4H PRN 04/28/19 01/18/25 History solution for nebulization Shortness Of Breath albuterol sulfate 90 mcg/actuation 2 puff inhalation QID PRN 04/28/19 01/18/25 History aerosol inhaler (ProAir HFA) Shortness Of Breath budesonide-formoterol HFA 160 2 puff inhalation Q12H 04/28/19 01/18/25 History mcg-4.5 mcg/actuation aerosol inhaler (Symbicort) ipratropium 0.5 mg-albuterol 3 mg 3 ml inhalation Q6-8H PRN 01/18/25 01/18/25 History (2.5 mg base)/3 mL nebulization shortness of breath or wheezing soln losartan 100 mg tablet 100 mg PO DAILY@0800 01/18/25 01/18/25 History metoprolol succinate 25 mg 25 mg PO Q12H 01/18/25 01/18/25 History tablet,extended release 24 hr tiotropium bromide 2.5 2 puff inhalation Q24H 01/18/25 01/18/25 History mcg/actuation mist for inhalation (Spiriva Respimat) Allergies Allergy/AdvReac Type Severity Reaction Status Date / Time aspirin Allergy Unknown Verified 01/18/25 15:13 benzonatate (From Tessalon Allergy Unknown Verified 01/18/25 15:13 Perloniel) Penicillins Allergy Unknown Verified 01/18/25 15:13 Sulfa (Sulfonamide Allergy Unknown Verified 01/18/25 15:13 Antibiotics) Vital Signs Vital Signs - 24 hr 01/18/25 11:13 01/18/25 11:30 01/18/25 11:53 Temperature 99.4 F Pulse Rate 135 H 132 H 134 H Respiratory Rate 24 H 20 24 H Blood Pressure 163/103 H 163/102 H Pulse Oximetry 95 94 94 Oxygen Delivery Room Air Oxygen Flow Rate 0 01/18/25 12:02 01/18/25 12:30 01/18/25 13:00 Temperature Pulse Rate 134 H 127 H 125 H Respiratory Rate 24 H 18 20 Blood Pressure 161/104 H 158/108 H Pulse Oximetry 100 94 95 Oxygen Delivery Room Air Oxygen Flow Rate 0 01/18/25 13:30 01/18/25 14:00 01/18/25 14:30 Temperature Pulse Rate 123 H 119 H 112 H Respiratory Rate 20 21 H 21 H Blood Pressure 163/105 H 166/108 H 165/112 H Pulse Oximetry 93 94 96 Oxygen Delivery Room Air Room Air Oxygen Flow Rate 01/18/25 15:00 01/18/25 15:00 01/18/25 15:55 Temperature 98.2 F Pulse Rate 108 H 108 H 99 Respiratory Rate 21 H 21 H 20 Blood Pressure 169/112 H 169/112 H 160/107 H Pulse Oximetry 95 95 99 Oxygen Delivery Room Air Room Air Oxygen Flow Rate 01/18/25 16:00 01/18/25 17:08 01/18/25 17:12 Temperature Pulse Rate 93 98 102 H Respiratory Rate 16 24 H Blood Pressure Pulse Oximetry 95 99 Oxygen Delivery Oxygen Flow Rate 0 0 01/18/25 20:00 01/18/25 20:01 01/18/25 21:32 Temperature 97.8 F Pulse Rate 76 104 H 76 Respiratory Rate 24 H 20 Blood Pressure 152/95 H Pulse Oximetry 99 97 Oxygen Delivery Room Air Room Air Oxygen Flow Rate 01/18/25 21:34 01/18/25 21:34 01/19/25 00:00 Temperature 97.8 F Pulse Rate 76 81 Respiratory Rate Blood Pressure Pulse Oximetry Oxygen Delivery Oxygen Flow Rate 01/19/25 00:00 01/19/25 00:05 01/19/25 00:35 Temperature 97.5 F L Pulse Rate 77 82 83 Respiratory Rate 18 20 18 Blood Pressure 141/95 H Pulse Oximetry 98 98 97 Oxygen Delivery Room Air Oxygen Flow Rate 01/19/25 04:00 01/19/25 04:00 01/19/25 05:37 Temperature Pulse Rate 75 84 65 Respiratory Rate 18 16 Blood Pressure Pulse Oximetry 98 Oxygen Delivery Oxygen Flow Rate 01/19/25 05:46 01/19/25 08:00 01/19/25 08:00 Temperature 98.5 F Pulse Rate 60 79 79 Respiratory Rate 16 18 Blood Pressure 123/106 H Pulse Oximetry 100 98 Oxygen Delivery Room Air Oxygen Flow Rate 01/19/25 08:08 Temperature Pulse Rate 79 Respiratory Rate Blood Pressure Pulse Oximetry Oxygen Delivery Oxygen Flow Rate Exam Const: General: comfortable and no acute distress Resp: Effort & Inspection: normal respiratory effort Auscultation: rhonchi Cardio: Rate: regular rate Rhythm: regular rhythm GI: GI Palp: Yes Soft to palpation Auscultation: normal bowel sounds Skin: General skin exam: normal color Neuro: Speech: normal speech Motor exam (neuro): 5/5 motor strength present throughout Sensory Exam: normal sensation Extrem: General: normal to inspection Psych: Mental Status: mental status grossly normal H&P: Results Labs Labs: Short CBC 01/18/25 01/19/25 Range/Units 11:56 05:11 WBC 5.6 5.1 (4.8-10.8) K/mm3 Hgb 14.8 12.4 (12.0-15.0) g/dL Hct 43.5 36.4 (35.0-49.0) % Plt Count 183 215 (150-420) K/mm3 BMP 01/18/25 01/19/25 11:56 05:11 Sodium 132 L 137 Potassium 4.4 4.0 Chloride 97 L 105 Carbon Dioxide 25 25 BUN 4 L 6 L Creatinine 0.67 L 0.50 L Glucose 311 H 137 H Calcium 9.4 9.3 Cardiac Enzymes 01/18/25 Range/Units 11:56 Troponin I < 0.012 (0.000-0.034) ng/mL Liver Function 01/18/25 01/19/25 Range/Units 11:56 05:11 Total Bilirubin 0.5 0.3 (0.2-1.3) mg/dL AST 97 H 37 H (14-36) U/L ALT 66 H 40 H (6-35) U/L Alkaline Phosphatase 97 68 (38-126) U/L Albumin 4.6 3.7 (3.5-5.1) g/dL Urine 01/18/25 Range/Units 16:32 Urine Color Light yellow (Yellow) Urine Appearance Clear (Clear) Urine pH 5.5 (5.0-8.0) Ur Specific [place] <= 1.005 L (1.010-1.020) Urine Protein Negative (Negative) Urine Glucose (UA) 2+ H (Negative) Assessment and Plan Assessment and plan (1) COPD with acute exacerbation: Code(s): J44.1 - Chronic obstructive pulmonary disease with (acute) exacerbation Status: Acute Assessment and Plan: Currently remains on room air, no distress Continue Solu-Medrol 40 mg q.12 hours Continue DuoNebs q.6 hours Continue home inhalers Symbicort, Incruse Ellipta, Spiriva Respimat Add Flonase BID IS every 1-2 hrs while awake Plan for home oxygen evaluation prior to discharge Possible dc home tomorrow if contines to improve (2) CAP (community acquired pneumonia): Code(s): J18.9 - Pneumonia, unspecified organism Status: Acute Assessment and Plan: 01/18 - CTA Chest: Negative PE, Tiny focal pneumonitis RLL Levaquin 750 mg IV started 01/18 Encourage IS (3) Smoker: Code(s): F17.200 - Nicotine dependence, unspecified, uncomplicated Status: Acute Assessment and Plan: Patient reports she plans to quit on her own Nicotine patch offered, patient declined Quality VTE Prophylaxis VTE prophylaxis: pharmacologic ordered
[2025-01-19] MEDS: FLUTICASONE PROPIONATE 0.05% NA SPR 16 GM BTL (*BKC) 1 SPRAY NASAL ×2 (11:24→21:06)
[2025-01-19] MEDS: levoFLOXacin 750 MG/D5W 150 ML 750 MG/150 ML BAG 100 MG IVPB (11:25)
[2025-01-20] VITALS (11 sets, daily range): BP systolic 127–145; BP diastolic 88–92; PULSE 60–117; RESP 14–17; TEMP 36.2–36.6; O2SAT 96–100
[2025-01-20] MEDS: IPRATROPIUM 0.5 MG/ALBUTEROL SULFATE 2.5 MG (BASE) AMPUL.NEB 3 ML INHALATION ×2 (00:22→05:44)
[2025-01-20] MEDS: BUDESONIDE/FORMOTEROL (*SP) 160-4.5 MCG 6 GM INH 2 PUFF INHALATION (05:22)
[2025-01-20 05:33] LABS: Hematocrit 37.5 % (35.0-49.0); Hemoglobin 12.4 g/dL (12.0-15.0); Immature Granulocyte Percent A 0.3 % (0.0-0.0); Lymphocytes Absolute Auto 1.75 K/mm3 (1.10-4.50); Mean Corpuscular HGB Conc 33.1 g/dL (32-36); Mean Corpuscular Hemoglobin 31.2 pg (27.0-31.0); Mean Corpuscular Volume 94.5 fL (78.0-102.0); Nucleated Red Blood Cells Absolute Auto 0.00 K/mm3 (0.00-0.00); Nucleated Red Blood Cells Perc 0.0 % (0-0.0); Platelet Count Result 257 K/mm3 (150-420); Red Blood Count 3.97 M/mm3 (4.20-5.40); White Blood Count 7.9 K/mm3 (4.8-10.8)
[2025-01-20 05:47] LABS: Anion Gap 3 mmol/L (4-12); Blood Urea Nitrogen 8 mg/dL (7-17); Calcium 9.7 mg/dL (8.4-10.2); Carbon Dioxide 26 mmol/L (22-30); Chloride 106 mmol/L (98-107); Estimated CRCL calculation 66 ml/min; Estimated Glomerular Filt Rate > 60; Glucose 120 mg/dL (65-110); Magnesium 2.3 mg/dL (1.6-2.3); Osmolality Calculated 279 mOsm/kg (285-295); Potassium 4.7 mmol/L (3.4-5.0); Sodium 135 mmol/L (137-145)
--- NOTE | 2025-01-20 08:35 | P.DS_ITS ---
DS: Admitting Diagnosis Discharge Date 01/20/2025 Admitting Diagnosis COPD exacerbation pneumonia DS: Discharge Diagnosis Discharge Diagnosis Plan COPD exacerbation Pneumonia DS: Summary Hospital Course Hospital Course: 49-year-old female with a history of right pneumonectomy in childhood, COPD, continue smoker presented to the emergency room with sinus congestion and increased shortness of breath for 1 week without fever or chills. While in the emergency room patient was started on Levaquin for suspected pneumonia on CTA chest, Solu-Medrol given. Influenza, RSV, and COVID were negative. patient's breathing status improved during her hospitalization, she did not require oxygen. A help walking O2 assessment was conducted, patient did not require oxygen for home use while ambulating. She was discharged home on Levaquin p.o. to finish her course of antibiotics. She will continue her home medications and follow up with the primary care doctor and her carton packaging machine operator. Patient was encouraged to continue smoking cessation which she indicated she plans to. Patient should follow with the primary care doctor within the next week Time spent discussing smoking cessation with patient: 3 to 10 minutes Status at Discharge Functional status at discharge: independent ambulation Overall status at discharge: patient is back to baseline Time Spent with Patient Time attestation: Total time spent providing and/or coordinating discharge services: Time spent: Less than 30 minutes Exam Narrative: GENERAL: Well-appearing, well-nourished, and in no acute distress. HEAD: Normocephalic, atraumatic. EYES: PERRLA and EOMI. ENT: Nares clear, no rhinorrhea or epistaxis. Mucous membranes moist. NECK: Supple. CHEST: Right lungs Clear to auscultation. No respiratory distress. HEART: Regular rate and rhythm. No murmur heard. Normal peripheral pulses. ABDOMEN: Soft, nontender, nondistended, normal active bowel sounds. EXTREMITIES: Normal range of motion. No edema. SKIN: Warm, dry, no rash. NEURO: No focal deficits. Alert and oriented x3. PSYCH: Normal mood and affect. DS: Data Data Completed and Pending Labs on day of discharge: Labs from last 24 hours 01/20/25 05:08 WBC 7.9 RBC 3.97 L Hgb 12.4 Hct 37.5 MCV 94.5 MCH 31.2 H MCHC 33.1 RDW 13.5 Plt Count 257 MPV 9.4 Immature Gran % (Auto) 0.3 H Neut % (Auto) 69.7 Lymph % (Auto) 22.1 Coleman % (Auto) 7.8 Eos % (Auto) 0.0 L Baso % (Auto) 0.1 Lymph # (Auto) 1.75 Coleman # (Auto) 0.62 Eos # (Auto) 0.00 L Baso # (Auto) 0.01 Abs Immat Gran (auto) 0.02 H Absolute Neuts (auto) 5.51 Absolute Nucleated RBC 0.00 Nucleated RBC % 0.0 Sodium 135 L Potassium 4.7 Chloride 106 Carbon Dioxide 26 Anion Gap 3 L BUN 8 Creatinine 0.56 L Estim Creat Clear Calc 66 Estimated GFR > 60 Glucose 120 H Calculated Osmolality 279 L Calcium 9.7 Magnesium 2.3 Discharge Plan Discharge Attending physician on discharge: Van Werner Discharging Clinician: Michael Zamora Anticipated Discharge Date/Time: 01/20/25 12:00 Patient Disposition: Home Activity: as tolerated Diet: as tolerated Discharge Instructions: Thank you for [facility] for your care. That is all doses of the antibiotics that were prescribed. Taper down the steroid doses as prescribed. Continue to work on smoking cessation. Follow up with your primary care doctor within the next week. Return to the emergency room with any worsening condition or concern Patient Instructions: Antibiotic Form, Albuterol (By breathing), Levofloxacin (By mouth), COPD (Chronic Obstructive Pulmonary Disease) (DC), How to Use a Nebulizer (DC) Patient Language: Japanese Stand Alone Forms: General Discharge Information Follow-up/Referrals: Brinda,MD Waldo [Primary Care Provider, [facility]] - 1 week Problems: COPD with acute exacerbation; CAP (community acquired pneumonia); Smoker Discharge Medications: New fluticasone propionate 50 mcg/actuation [place],Suspension 1 spray intranasal Q12HR Qty: 16 0RF levofloxacin 750 mg tablet 750 mg PO DAILY 3 Days Qty: 3 0RF Rx Instructions: Start 01/21/2025 methylprednisolone [Medrol (Vj)] 4 mg tablets,dose pack See Rx Instructions .ROUTE .COMPLEX Qty: 21 0RF Rx Instructions: Start 01/21/2025 for 6 days, follow instructions on package (DME) nebulizer and compressor Device See Rx Instructions .Route Qty: 1 0RF Rx Instructions: As directed Continued albuterol sulfate 0.63 mg/3 mL Solution For Nebulization 0.63 mg INHALATION Q4H PRN (Reason: Shortness Of Breath) albuterol sulfate [ProAir HFA] 90 mcg/actuation Hfa Aerosol Inhaler 2 puff INHALATION QID PRN (Reason: Shortness Of Breath) budesonide-formoterol [Symbicort] 160-4.5 mcg/actuation Hfa Aerosol Inhaler 2 puff INHALATION Q12H ipratropium-albuterol 0.5 mg-3 mg(2.5 mg base)/3 mL solution for nebulization 3 ml INHALATION Q6-8H PRN (Reason: shortness of breath or wheezing) Spiriva Respimat 2.5 mcg/actuation mist 2 puff INHALATION Q24H metoprolol succinate 25 mg tablet extended release 24 hr 25 mg PO Q12H losartan 100 mg tablet 100 mg PO DAILY@0800 Date of admission: 01/18/25 14:19 Primary Care Provider: Saulo,Waldo Admitting Provider: Van Werner Attending physician on admission: Van Werner Condition: Stable
[2025-01-20] MEDS: levoFLOXacin TAB 500 MG, levoFLOXacin TAB 250 MG 750 MG PO (08:43)
[2025-01-20] MEDS: METOPROLOL SUCCINATE EXT REL 25 MG TABCR PO (08:43)
[2025-01-20] MEDS: LOSARTAN POTASSIUM 50 MG TABLET 100 MG PO (08:43)
[2025-01-20] MEDS: UMECLIDINIUM BROMIDE 62.5 MCG ELLIPTA 1 PUFF INHALATION (08:44)
[2025-01-20] MEDS: ENOXAPARIN 40 MG/0.4 ML SYRINGE SUB-Q (08:44)
--- NOTE | 2025-01-20 09:26 | PC.NURSE ---
Patient being discharged today to home. All discharge instructions discussed, education on side effects and patient voiced understanding at this time. Requested FLU shot to be administered, after discussing with GRANULATING BLENDER was informed to wait until after antibiotics were finished and also could talk with PCP at 1 week follow up. She agrees.
--- NOTE | 2025-01-20 10:20 | PC.NURSE ---
Today at 0935 patient escorted/ambulated by hosptial staff out of facility to family vehicle without difficulty.
--- NOTE | 2025-01-21 10:59 | PC.NURSE ---
Discharge call back attempted, no answer.
--- NOTE | 2025-01-24 09:01 | PC.NURSE ---
Unable to reach for discharge call back.
== END 2025-01-20 09:35 | disposition home or self-care (01) ==
LOC: CHSED 14:27 → CHS2ND 14:40
PROVIDERS: Nurse Practitioner; Nurse Practitioner Adult Health; Admitting Provider Internal Medicine; Emergency Provider Emergency Medicine; PCP Family Medicine; Visit Provider Internal Medicine
DX: J44.0 Chronic obstructive pulmonary disease with (acute) lower respiratory infection (principal); J18.9 Pneumonia, unspecified organism; J44.1 Chronic obstructive pulmonary disease with (acute) exacerbation; I10 Essential (primary) hypertension; F41.9 Anxiety disorder, unspecified; Z90.2 Acquired absence of lung [part of]; Z79.51 Long term (current) use of inhaled steroids; Z20.822 Contact with and (suspected) exposure to COVID-19; F17.210 Nicotine dependence, cigarettes, uncomplicated
CPT/HCPCS: 36415; 71045; 71275; 80048; 80053; 81003; 83605; 83735; 83880; 84484; 85025; 85380; 87040; 87637; 93005; 94618; 94640; 96361; 96365; 96366; 96372; 96374; 96375; 96376; 99285; A9270; G0378; G0379; J1650; J1956; J2919; J7030; J7040; Q9967